=== PATIENT | male | born 1970 | race Caucasian/White ===

== ENCOUNTER 2018-01-28 01:51 | Emergency (ER) | payer SELFPAY ==
[2018-01-28] MEDS ORDERED: Sodium Chloride 0.9% 1,000 ML IV ONE (02:19)
[2018-01-28] MEDS ORDERED: Morphine 2 MG/ML Syringe IVPUSH ONE (02:20)
--- NOTE | 2018-01-28 02:24 | EDM.PDOC ---
ED HPI GENERAL MEDICAL PROBLEM - General Chief Complaint: ENT Problem Stated Complaint: ABCESSED TOOTH Time Seen by Provider: 01/28/18 01:55 - History of Present Illness INITIAL COMMENTS - FREE TEXT/NARRATIVE: HISTORY AND PHYSICAL: History of present illness: 47-year-old male presenting [facility] department with chief complaint of right jaw pain. Patient states that for the past few months he's had right jaw pain and knows that he has had a dental infection on and off. States that over the past 2 nights he is felt extremely feverish and has had some associated nausea without vomiting. Secondary above he came in for further evaluation. States he is not had a dental appointment yet. Does have some ear pain on the right side. States that the pain radiates from his right jaw into his right neck. Denies any chest pain, palpitations, shortness breath, syncopal episodes, focal neurologic deficits. On exam patient has significant swelling to the right lower jaw. Tooth #30 is chipped with poor dentition. There is surrounding erythema and significant swelling. Patient is tender to palpation along jaw but not mastoid. Submandibular and anterior cervical lymph nodes on the right side of her significantly enlarged and tender. CT macro facial showed extensive right facial edema without definitive walled off collections consistent with abscess. There is also bilateral neck adenopathy. Review of systems: As per history of present illness and below otherwise all systems reviewed and negative. Past medical history: As per history of present illness and as reviewed below otherwise noncontributory. Surgical history: As per history of present illness and as reviewed below otherwise noncontributory. Social history: No reported history of drug or alcohol abuse. Family history: As per history of present illness and as reviewed below otherwise noncontributory. Physical exam: HEENT: Atraumatic, normocephalic, pupils reactive, negative for conjunctival pallor or scleral icterus, mucous membranes moist, throat clear, neck supple, trachea midline. Lungs: Clear to auscultation, breath sounds equal bilaterally, chest nontender. Heart: S1S2, regular, negative for clicks, rubs, or JVD. Abdomen: Soft, nondistended, nontender. Negative for masses or hepatosplenomegaly. Negative for costovertebral tenderness. Pelvis: Stable nontender. Genitourinary: Deferred. Rectal: Deferred. Extremities: Atraumatic, negative for cords or calf pain. Neurovascular unremarkable. Neuro: Awake, alert, oriented. Cranial nerves II through XII unremarkable. Cerebellum unremarkable. Motor and sensory unremarkable throughout. Exam nonfocal. Diagnostics: CBC, CMP, CT maxillofacial Therapeutics: 1 L normal saline, 2 mg IV morphine, Rocephin IM, Augmentin 875mg PO BID x 10 days, Percocet 5-325 #12, dental balls Impression: Dental abscess Plan: Please see H&P. CBC and CMP are unremarkable. Patient was instructed to follow- up with a dentist [facility]. He was given a prescription of Augmentin as well as Percocet for pain and infection. He was instructed to return to emergency department if he any new or worsening symptoms. He is also instructed to follow- up with his primary care provider. Definitive disposition and diagnosis as appropriate pending reevaluation and review of above. left lower tooth/jaw Pain Score (Numeric/FACES): 10 right jaw Pain Score (Numeric/FACES): 10 - Related Data Allergies Allergy/AdvReac Type Severity Reaction Status Date / Time meperidine HCl [From Demerol] Allergy Redness Verified 08/22/14 14:32 Home Meds: Home Meds Dextroamphetamine/Amphetamine [Adderall] 30 mg PO BID 03/23/14 [History] Blood Pressure Medication 01/28/18 [History] ED ROS GENERAL - Review of Systems Review Of Systems: ROS reveals no pertinent complaints other than HPI. ED EXAM, GENERAL - Physical Exam Exam: See Below Course - Vital Signs Last Recorded V/S: Last Vital Signs Temp 97.3 F 01/28/18 04:17 Pulse 102 H 01/28/18 04:17 Resp 18 01/28/18 04:17 BP 169/116 H 01/28/18 04:17 Pulse Ox 98 01/28/18 04:17 - Orders/Labs/Meds Orders: Active Orders 24 hr Category Date Time Status Max Facial Sinus wo Cont [CT] Stat Exams 01/28/18 02:20 Taken Labs: Laboratory Tests 01/28/18 01/28/18 Range/Units 02:20 02:20 WBC 10.24 (4.0-11.0) K/uL RBC 5.05 (4.50-5.90) M/uL Hgb 15.0 (13.0-17.0) g/dL Hct 42.9 (38.0-50.0) % MCV 85.0 (80.0-98.0) fL MCH 29.7 (27.0-32.0) pg MCHC 35.0 (31.0-37.0) g/dL RDW Std Deviation 39.5 (28.0-62.0) fl RDW Coeff of Yunior 13 (11.0-15.0) % Plt Count 224 (150-400) K/uL MPV 9.30 (7.40-12.00) fL Neut % (Auto) 70.7 (48.0-80.0) % Lymph % (Auto) 19.8 (16.0-40.0) % [place] % (Auto) 7.9 (0.0-15.0) % Eos % (Auto) 1.3 (0.0-7.0) % Baso % (Auto) 0.3 (0.0-1.5) % Neut # (Auto) 7.2 H (1.4-5.7) K/uL Lymph # (Auto) 2.0 (0.6-2.4) K/uL [place] # (Auto) 0.8 (0.0-0.8) K/uL Eos # (Auto) 0.1 (0.0-0.7) K/uL Baso # (Auto) 0.0 (0.0-0.1) K/uL Nucleated RBC % 0.0 /100WBC Nucleated RBCs # 0 K/uL Sodium 139 (136-148) mmol/L Potassium 3.1 L (3.5-5.1) mmol/L Chloride 102 (98-107) mmol/L Carbon Dioxide 27.4 (21.0-32.0) mmol/L BUN 14 (7.0-18.0) mg/dL Creatinine 1.5 H (0.8-1.3) mg/dL Est Cr Clr Drug Dosing TNP Estimated GFR (MDRD) 50.4 ml/min Glucose 106 (74-106) mg/dL Calcium 8.7 (8.5-10.1) mg/dL Total Bilirubin 0.4 (0.2-1.0) mg/dL AST 34 (15-37) IU/L ALT 39 (14-63) IU/L Alkaline Phosphatase 90 (46-116) U/L Total Protein 7.4 (6.4-8.2) g/dL Albumin 3.8 (3.4-5.0) g/dL Globulin 3.6 H (2.0-3.5) g/dL Albumin/Globulin Ratio 1.1 L (1.3-2.8) Meds: Medications Discontinued Medications Generic Name Dose Route Start Last Admin Trade Name Freq PRN Reason Stop Dose Admin Benzocaine 2 each 01/28/18 03:59 01/28/18 04:18 Hurricaine One 20% MUCMEM 01/28/18 04:00 2 each ONETIME ONE Administration Ceftriaxone Sodium 250 mg 01/28/18 04:19 Rocephin IM 01/28/18 04:20 ONETIME ONE Hydromorphone HCl 1 mg 01/28/18 03:28 01/28/18 03:33 Dilaudid IVPUSH 01/28/18 03:29 1 mg ONETIME ONE Administration Sodium Chloride 1,000 mls @ 999 mls/hr 01/28/18 02:19 01/28/18 02:30 Normal Saline IV 01/28/18 03:19 999 mls/hr STAT ONE Administration Lidocaine HCl 15 ml 01/28/18 03:59 01/28/18 04:18 Xylocaine 2% Viscous PO 01/28/18 04:00 15 ml ONETIME ONE Administration Morphine Sulfate 2 mg 01/28/18 02:20 01/28/18 02:34 Morphine IVPUSH 01/28/18 02:21 2 mg ONETIME ONE Administration Departure - Departure Time of Disposition: 04:25 Disposition: Home, Self-Care 01 Condition: Good Clinical Impression: Dental abscess - Discharge Information Referrals: Kamryn Ren DO [Primary Care Provider] - Forms: ED Department Discharge Additional Instructions: My general discharge The following information is given to patients seen in the emergency department who are being discharged to home. This information is to outline your options for follow-up care. We provide all patients seen in our emergency department with a follow-up referral. The need for follow-up, as well as the timing and circumstances, are variable depending upon the specifics of your emergency department visit. If you don't have a primary care physician on staff, we will provide you with a referral. We always advise you to contact your personal physician following an emergency department visit to inform them of the circumstance of the visit and for follow-up with them and/or the need for any referrals to a consulting specialist. The emergency department will also refer you to a specialist when appropriate. This referral assures that you have the opportunity for follow-up care with a specialist. All of these measure are taken in an effort to provide you with optimal care, which includes your follow-up. Under all circumstances we always encourage you to contact your private physician who remains a resource for coordinating your care. When calling for follow-up care, please make the office aware that this follow-up is from your recent emergency room visit. If for any reason you are refused follow-up, please contact the [facility] Emergency Department at and asked to speak to the emergency department charge nurse. [address] [address] Take medications as prescribed. Follow-up with a dentist as soon as possible. Return to emergency department if any new or worsening symptoms. - My Orders Last 24 Hours: My Active Orders 01/28/18 02:20 Max Facial Sinus wo Cont [CT] Stat - Assessment/Plan Last 24 Hours: My Active Orders 01/28/18 02:20 Max Facial Sinus wo Cont [CT] Stat
[2018-01-28 03:01] LABS: CHLORIDE,CL 102 mmol/L (98-107); SODIUM,NA 139 mmol/L (136-148)
[2018-01-28] MEDS ORDERED: HYDROmorphone 1 MG/ML Syringe IVPUSH ONE (03:28)
[2018-01-28] MEDS ORDERED: Benzocaine 20% Topical Spray UD MUCMEM ONE (03:59)
[2018-01-28] MEDS ORDERED: Lidocaine 2% Viscous Solution 15 ML Cup PO ONE (03:59)
[2018-01-28 04:18] VITALS: BP 169/116
[2018-01-28] MEDS ORDERED: cefTRIAXone 250 MG Vial IM ONE (04:19)
[2018-01-28] MEDS ORDERED: cefTRIAXone 250 MG in Water For Injection, Sterile 7 ML IV STA (04:32)
[2018-01-28] MEDS ORDERED: Water For Injection, Sterile 20 ML ONE (04:37)
--- NOTE | 2018-01-29 10:40 | CT ---
EXAM DATE: 01/28/18 PATIENT'S AGE: 47 Patient: DAVID CANO Facility: [place], [place] : 1970 Study: CT Facial Right [id number]/5/2018 3:24:54 AM Ordering Physician: Mario Delgado Final Report: INDICATION: tooth abscess, lower right side INDICATION: Lower right-sided tooth abscess TECHNIQUE: CT maxillofacial without contrast. COMPARISON: None FINDINGS: Facial bones: No fractures or bone lesions. Specifically the nasal bones, temporomandibular joints, maxilla and mandible appear intact. Orbits and globes: Unremarkable. Sinuses: No acute or significant findings. Soft tissues: Right-sided facial edema. Correlate with cellulitis clinically. Bilateral neck adenopathy. IMPRESSION: Extensive right facial edema with no definite walled-off collections noted consistent with abscess. Correlate with cellulitis clinically. Bilateral neck adenopathy. Dictated by Tashi Yan MD @ 01/28/2018 4:15:23 AM Prelim Report By Dr. Tashi Yan @ 01/28/2018 4:15:25 AM Please note that all CT scans at this facility use dose modulation, iterative reconstruction, and/or weight-based dosing when appropriate to reduce radiation dose to as low as reasonably achievable. Dictated by: Tashi Yan MD @ 01/28/2018 13:48:00 Signed by: Tashi Yan MD @ 01/28/2018 1:48:00 PM (Electronic Signature) (Electronic Signature) [facility]
== END 2018-01-28 04:50 | disposition home or self-care (01) ==
LOC: MW.ED 01:51
DX: K04.7 Periapical abscess without sinus (principal); Z88.6 Allergy status to analgesic agent
CPT/HCPCS: 70486; 80053; 85025; 96361; 96374; 96375; 99284; A9270; J0696; J1170; J2270; J7040

== ENCOUNTER 2018-04-07 07:19 | Emergency (ER) | payer SELFPAY ==
[2018-04-07] MEDS ORDERED: Ketorolac 60 MG/2 ML SDV IM ONE (07:34)
--- NOTE | 2018-04-07 07:34 | EDM.PDOC ---
ED HPI GENERAL MEDICAL PROBLEM - General Stated Complaint: GOUT FLARE UP IN LEFT FOOT Time Seen by Provider: 04/07/18 07:27 Source of Information: Reports: Patient History Limitations: Reports: No Limitations - History of Present Illness INITIAL COMMENTS - FREE TEXT/NARRATIVE: History of present illness: []Patient has a history of gout and began having a flareup 2 days ago. He ran out of his refills for indomethacin. was unable to see him to give him a refill on his meds. Patient complains of left ankle pain for the gout is flaring, he denies any trauma, fevers, chills and states it feels like a typical gout flareup. Review of systems: As per history of present illness and below otherwise all systems reviewed and negative. Past medical history: As per history of present illness and as reviewed below otherwise noncontributory. Surgical history: As per history of present illness and as reviewed below otherwise noncontributory. Social history: No reported history of drug or alcohol abuse. Family history: As per history of present illness and as reviewed below otherwise noncontributory. Physical exam: General: Well developed, well nourished in NAD HEENT: Atraumatic, normocephalic, pupils reactive, negative for conjunctival pallor or scleral icterus, mucous membranes moist, throat clear, neck supple, nontender, trachea midline. Lungs: Clear to auscultation, breath sounds equal bilaterally, chest nontender. Heart: S1S2, regular, negative for clicks, rubs, or JVD. Abdomen: Soft, nondistended, nontender. Negative for masses or hepatosplenomegaly. Negative for costovertebral tenderness. Pelvis: Stable nontender. Genitourinary: Deferred. Rectal: Deferred. Extremities: Left ankle edematous with mild erythema and tenderness to palpation. Distal pulses are intact sensation is intact moves toes without difficulty, negative for cords or calf pain. Neurovascular unremarkable. Neuro: Awake, alert, oriented. Cranial nerves II through XII unremarkable. Cerebellum unremarkable. Motor and sensory unremarkable throughout. Exam nonfocal. Skin:warm and dry Diagnostics: CBC and uric acid Therapeutics: Toradol ED Course: Unremarkable Impression: Gout flareup Prescriptions: Indomethacin Plan: Ice, elevate, indomethacin as directed follow-up with her primary care Definitive disposition and diagnosis as appropriate pending reevaluation and review of above. Left Ankle Pain Score (Numeric/FACES): 10 - Related Data Allergies Allergy/AdvReac Type Severity Reaction Status Date / Time meperidine HCl [From Demerol] Allergy Redness Verified 04/07/18 07:25 Home Meds: Home Meds Blood Pressure Medication 01/28/18 [History] Indomethacin 50 mg PO BID PRN #16 capsule 04/07/18 [Rx] Past Medical History HEENT History: Reports: None Cardiovascular History: Reports: Hypertension Respiratory History: Reports: None Gastrointestinal History: Reports: None Genitourinary History: Reports: None Musculoskeletal History: Reports: Gout Neurological History: Reports: None Psychiatric History: Reports: ADHD Endocrine/Metabolic History: Reports: None Hematologic History: Reports: None - Infectious Disease History Infectious Disease History: Reports: Chicken Pox, Measles, Mumps - Past Surgical History Male Surgical History: Reports: None Social & Family History - Family History Family Medical History: Noncontributory ED ROS GENERAL - Review of Systems Review Of Systems: ROS reveals no pertinent complaints other than HPI. ED EXAM, GENERAL - Physical Exam Exam: See Below (History of present illness) Course - Vital Signs Last Recorded V/S: Last Vital Signs Temp 98.1 F 04/07/18 07:27 Pulse 108 H 04/07/18 07:27 Resp 17 04/07/18 07:27 BP 137/97 H 04/07/18 07:27 Pulse Ox 98 04/07/18 07:27 - Orders/Labs/Meds Orders: Active Orders 24 hr Category Date Time Status CULTURE BLOOD [BC] Stat Lab 04/07/18 08:20 Received CULTURE BLOOD [BC] Stat Lab 04/07/18 08:30 Received Blood Culture x2 Reflex Set [OM.PC] Stat Oth 04/07/18 08:15 Ordered Labs: Laboratory Tests 04/07/18 04/07/18 Range/Units 08:20 08:20 WBC 8.78 (4.0-11.0) K/uL RBC 4.97 (4.50-5.90) M/uL Hgb 14.7 (13.0-17.0) g/dL Hct 41.9 (38.0-50.0) % MCV 84.3 (80.0-98.0) fL MCH 29.6 (27.0-32.0) pg MCHC 35.1 (31.0-37.0) g/dL RDW Std Deviation 39.7 (28.0-62.0) fl RDW Coeff of Yunior 13 (11.0-15.0) % Plt Count 231 (150-400) K/uL MPV 9.20 (7.40-12.00) fL Neut % (Auto) 68.4 (48.0-80.0) % Lymph % (Auto) 19.4 (16.0-40.0) % [place] % (Auto) 9.6 (0.0-15.0) % Eos % (Auto) 2.3 (0.0-7.0) % Baso % (Auto) 0.3 (0.0-1.5) % Neut # (Auto) 6.0 H (1.4-5.7) K/uL Lymph # (Auto) 1.7 (0.6-2.4) K/uL [place] # (Auto) 0.8 (0.0-0.8) K/uL Eos # (Auto) 0.2 (0.0-0.7) K/uL Baso # (Auto) 0.0 (0.0-0.1) K/uL Nucleated RBC % 0.0 /100WBC Nucleated RBCs # 0 K/uL Uric Acid 8.0 H (2.6-7.2) mg/dL Meds: Medications Discontinued Medications Generic Name Dose Route Start Last Admin Trade Name Freq PRN Reason Stop Dose Admin Ketorolac Tromethamine 60 mg 04/07/18 07:34 04/07/18 07:40 Toradol IM 04/07/18 07:35 60 mg ONETIME ONE Administration Departure - Departure Time of Disposition: :06 Disposition: Home, Self-Care 01 Condition: Good Clinical Impression: Gout attack - Discharge Information *PRESCRIPTION DRUG MONITORING PROGRAM REVIEWED*: No *COPY OF PRESCRIPTION DRUG MONITORING REPORT IN PATIENT CONCEPCION: No Prescriptions: Indomethacin 50 mg PO BID PRN #16 capsule PRN Reason: Pain Referrals: Kamryn Ren DO [Primary Care Provider] - Additional Instructions: The following information is given to patients seen in the emergency department who are being discharged to home. This information is to outline your options for follow-up care. We provide all patients seen in our emergency department with a follow-up referral. The need for follow-up, as well as the timing and circumstances, are variable depending upon the specifics of your emergency department visit. If you don't have a primary care physician on staff, we will provide you with a referral. We always advise you to contact your personal physician following an emergency department visit to inform them of the circumstance of the visit and for follow-up with them and/or the need for any referrals to a consulting specialist. The emergency department will also refer you to a specialist when appropriate. This referral assures that you have the opportunity for follow-up care with a specialist. All of these measure are taken in an effort to provide you with optimal care, which includes your follow-up. Under all circumstances we always encourage you to contact your private physician who remains a resource for coordinating your care. When calling for follow-up care, please make the office aware that this follow-up is from your recent emergency room visit. If for any reason you are refused follow-up, please contact the [facility] Emergency Department at and asked to speak to the emergency department charge nurse. Indomethacin as directed follow-up with primary care [facility] [address] [place] [address] - My Orders Last 24 Hours: My Active Orders 04/07/18 08:15 Blood Culture x2 Reflex Set [OM.PC] Stat 04/07/18 08:20 CULTURE BLOOD [BC] Stat 04/07/18 08:30 CULTURE BLOOD [BC] Stat - Assessment/Plan Last 24 Hours: My Active Orders 04/07/18 08:15 Blood Culture x2 Reflex Set [OM.PC] Stat 04/07/18 08:20 CULTURE BLOOD [BC] Stat 04/07/18 08:30 CULTURE BLOOD [BC] Stat
[2018-04-07 09:42] VITALS: BP 160/104
== END 2018-04-07 09:20 | disposition home or self-care (01) ==
LOC: MW.ED 07:19
DX: M10.9 Gout, unspecified (principal); I10 Essential (primary) hypertension; Z88.8 Allergy status to other drugs, medicaments and biological substances
CPT/HCPCS: 36415; 84550; 85025; 87040; 96372; 99283; J1885

== ENCOUNTER 2019-02-08 19:49 | Emergency (ER) | payer SELFPAY ==
[2019-02-08 20:19] VITALS: BP 137/98
--- NOTE | 2019-02-08 20:32 | EDM.PDOC ---
ED HPI GENERAL MEDICAL PROBLEM - General Chief Complaint: Upper Extremity Injury/Pain Stated Complaint: PT HAS GOUT Time Seen by Provider: 02/08/19 20:19 Source of Information: Reports: Patient History Limitations: Reports: No Limitations - History of Present Illness INITIAL COMMENTS - FREE TEXT/NARRATIVE: Presents reporting gout. The patient states that he has had a number of gout attacks. He currently has pain tenderness redness and swelling of his right hand. He states that he has had an attack in this hand before and his hand swelled up even worse. On that occasion he was tested and indeed he did have gout. He also has some gout in his right ankle and in his left knee. He states that he has an appointment on Thursday with in primary care to discuss preventative treatment. He denies drinking beer, eating shellfish, organ meats or other high purine foods. He usually keeps indomethacin with him to head off attacks but he was out of medication. right hand, right foot, left knee Pain Score (Numeric/FACES): 10 - Related Data Allergies Allergy/AdvReac Type Severity Reaction Status Date / Time meperidine HCl [From Demerol] Allergy Redness Verified 02/08/19 20:01 Home Meds: Home Meds Blood Pressure Medication 01/28/18 [History] Indomethacin 50 mg PO BID PRN #16 capsule 04/07/18 [Rx] Indomethacin [Indocin] 50 mg PO TID #20 cap 02/08/19 [Rx] predniSONE [Prednisone] 2 tab PO DAILY #10 tablet 02/08/19 [Rx] Past Medical History HEENT History: Reports: None Cardiovascular History: Reports: Hypertension Respiratory History: Reports: None Gastrointestinal History: Reports: None Genitourinary History: Reports: None Musculoskeletal History: Reports: Gout Neurological History: Reports: None Psychiatric History: Reports: ADHD Endocrine/Metabolic History: Reports: None Hematologic History: Reports: None Dermatologic History: Reports: None - Infectious Disease History Infectious Disease History: Reports: Chicken Pox - Past Surgical History Male Surgical History: Reports: None Social & Family History - Family History Family Medical History: Noncontributory - Tobacco Use Smoking Status *Q: Current Every Day Smoker Years of Tobacco use: 20 Packs/Tins Daily: 1 - Recreational Drug Use Recreational Drug Use: Yes Recreational Drug Type: Reports: Marijuana/Hashish Review of Systems - Review of Systems Review Of Systems: ROS reveals no pertinent complaints other than HPI. ED EXAM, GENERAL - Physical Exam Exam: See Below Exam Limited By: No Limitations General Appearance: Alert, Mild Distress (Due to right hand tenderness) Ears: Normal External Exam, Normal TMs Nose: Normal Inspection Throat/Mouth: Normal Inspection Head: Atraumatic Neck: Normal Inspection Respiratory/Chest: No Respiratory Distress, Lungs Clear Cardiovascular: Normal Peripheral Pulses, Regular Rate, Rhythm, No Murmur Peripheral Pulses: 3+: Radial (L), Radial (R), Popliteal (L), Popliteal (R), Posterior Tibial (L), Posterior Tibial (R) Extremities: Other (Right dorsal hand swollen, calorous, tender, pink. Right lateral ankle, tender, mildly swollen, no erythema or calor. Left knee mild erythema no swelling, mild tenderness distally, full range of motion without hesitation or limitation of the knee.) Course - Vital Signs Last Recorded V/S: Last Vital Signs Temp 36.8 C 02/08/19 20:03 Pulse 110 H 02/08/19 20:03 Resp 18 02/08/19 20:03 BP 137/98 H 02/08/19 20:03 Pulse Ox 95 02/08/19 20:03 Departure - Departure Time of Disposition: 20:39 Disposition: Home, Self-Care 01 Condition: Good Clinical Impression: Gout Qualifiers: Gout site: multiple sites Gout etiology: unspecified cause Chronicity: chronic Qualified Code(s): M1A.09X0 - Idiopathic chronic gout, multiple sites, without tophus (tophi) - Discharge Information Referrals: PCP,None [Primary Care Provider] - Kamryn Ren DO [Physician] - Additional Instructions: The following information is given to patients seen in the emergency department who are being discharged to home. This information is to outline your options for follow-up care. We provide all patients seen in our emergency department with a follow-up referral. The need for follow-up, as well as the timing and circumstances, are variable depending upon the specifics of your emergency department visit. If you don't have a primary care physician on staff, we will provide you with a referral. We always advise you to contact your personal physician following an emergency department visit to inform them of the circumstance of the visit and for follow-up with them and/or the need for any referrals to a consulting specialist. The emergency department will also refer you to a specialist when appropriate. This referral assures that you have the opportunity for follow-up care with a specialist. All of these measure are taken in an effort to provide you with optimal care, which includes your follow-up. Under all circumstances we always encourage you to contact your private physician who remains a resource for coordinating your care. When calling for follow-up care, please make the office aware that this follow-up is from your recent emergency room visit. If for any reason you are refused follow-up, please contact the [facility] Emergency Department at and asked to speak to the emergency department charge nurse. 1. Prednisone: Take 3 tabs tonight and then 2 tabs daily for the next 4 days 2. Indomethacin 3 times a day as needed for gout attack 3. Follow-up with Dr. Ren on Thursday as previously scheduled 4. Drink plenty of fluids 5. Return if symptoms worsen or do not improve as expected
[2019-02-08] MEDS ORDERED: Ketorolac 60 MG/2 ML SDV IM ONE (20:34)
== END 2019-02-08 21:02 | disposition home or self-care (01) ==
LOC: MW.ED 19:49
DX: M1A.09X0 Idiopathic chronic gout, multiple sites, without tophus (tophi) (principal); I10 Essential (primary) hypertension; F17.210 Nicotine dependence, cigarettes, uncomplicated; Z88.5 Allergy status to narcotic agent; Z79.899 Other long term (current) drug therapy
CPT/HCPCS: 96372; 99283; J1885

== ENCOUNTER 2019-08-02 16:48 | Emergency (ER) | payer SELFPAY ==
--- NOTE | 2019-08-02 16:55 | EDM.PDOC ---
ED HPI GENERAL MEDICAL PROBLEM - General Stated Complaint: GOUT HANDS & FEET Time Seen by Provider: 08/02/19 16:49 Source of Information: Reports: Patient History Limitations: Reports: No Limitations - History of Present Illness INITIAL COMMENTS - FREE TEXT/NARRATIVE: HISTORY AND PHYSICAL: History of present illness: Patient is a 48-year-old male who presents to the emergency room with complaints of bilateral hands and feet discomfort. Patient has a longstanding history of gout and does typically take allopurinol daily to help prevent these attacks. He states he does have gout flares every few months or so. Currently out of his indomethacin which he typically will take when he feels he is having a flare. Patient denies any fever, chills, headache, change in vision, syncope or near syncope. Denies any chest pain, back pain, shortness of breath or cough. Denies any GI or symptoms. Patient has been eating and drinking appropriately. Review of systems: As per history of present illness and below otherwise all systems reviewed and negative. Past medical history: As per history of present illness and as reviewed below otherwise noncontributory. Surgical history: As per history of present illness and as reviewed below otherwise noncontributory. Social history: See social history for further information Family history: As per history of present illness and as reviewed below otherwise noncontributory. Physical exam: General: Well-developed and well-nourished 48-year-old male. Alert and oriented. Nontoxic-appearing and in no acute distress. HEENT: Atraumatic, normocephalic, pupils equal and reactive bilaterally, negative for conjunctival pallor or scleral icterus, mucous membranes moist, TMs normal bilaterally, throat clear, neck supple, nontender, trachea midline. No drooling or trismus noted. No meningeal signs. No hot potato voice noted. Lungs: Clear to auscultation, breath sounds equal bilaterally, chest nontender. Heart: S1S2, regular rate and rhythm without overt murmur Abdomen: Soft, nondistended, nontender. Skin: Intact, warm, dry. No concerns of cellulitis or infection. No lesions or rashes noted. Extremities: Atraumatic, moves all extremities per self without difficulty or deficits, negative for cords or calf pain. Neurovascular unremarkable. Neuro: Awake, alert, oriented. Cranial nerves II through XII unremarkable. Cerebellum unremarkable. Motor and sensory unremarkable throughout. Exam nonfocal. Notes: Patient reports that he received a shot of Toradol IM on his last ER visit and states that that helped alleviate his discomfort, requesting 1 today. Denies any injury, trauma or falls. Pain is in the knuckles and joints of his hands and bilateral feet which he states is typical with his gout flares. We did discuss the importance of following up with his primary care provider. Supportive care measures were reviewed and discussed. Voices understanding and is agreeable to plan of care. Denies any further questions or concerns at this time. Diagnostics: Declines Therapeutics: Toradol IM Prescription: Indomethacin Colchicine Prednisone Impression: Gout Attack Plan: 1. Take the medication as directed. 2. Follow up with your primary care provider as we discussed. 3. Return to the ED as we discussed. Definitive disposition and diagnosis as appropriate pending reevaluation and review of above. both hands;feet Pain Score (Numeric/FACES): 9 - Related Data Allergies Allergy/AdvReac Type Severity Reaction Status Date / Time meperidine HCl [From Demerol] Allergy Redness Verified 08/02/19 17:01 Home Meds: Home Meds Allopurinol [Zyloprim] 100 mg PO DAILY 08/02/19 [History] Past Medical History HEENT History: Reports: None Cardiovascular History: Reports: Hypertension Respiratory History: Reports: None Gastrointestinal History: Reports: None Genitourinary History: Reports: None Musculoskeletal History: Reports: Gout Neurological History: Reports: None Psychiatric History: Reports: ADHD Endocrine/Metabolic History: Reports: None Hematologic History: Reports: None Dermatologic History: Reports: None - Infectious Disease History Infectious Disease History: Reports: Chicken Pox - Past Surgical History Male Surgical History: Reports: None Social & Family History - Family History Family Medical History: Noncontributory ED ROS GENERAL - Review of Systems Review Of Systems: Comprehensive ROS is negative, except as noted in HPI. ED EXAM, GENERAL - Physical Exam Exam: See Below (See dictation) Course - Vital Signs Last Recorded V/S: Last Vital Signs Temp 97 F 08/02/19 16:50 Pulse 129 H 08/02/19 16:50 Resp 18 08/02/19 16:50 BP 143/104 H 08/02/19 16:50 Pulse Ox 95 08/02/19 16:50 - Orders/Labs/Meds Meds: Medications Discontinued Medications Generic Name Dose Route Start Last Admin Trade Name Eunice PRN Reason Stop Dose Admin Ketorolac Tromethamine 60 mg 08/02/19 17:01 Toradol IM 08/02/19 17:02 ONETIME ONE Departure - Departure Time of Disposition: 17:04 Disposition: Home, Self-Care 01 Clinical Impression: Gout attack Qualifiers: Gout site: unspecified site Gout etiology: unspecified cause Qualified Code(s) : M10.9 - Gout, unspecified - Discharge Information Instructions: Gout, [id number] Additional Instructions: The following information is given to patients seen in the emergency department who are being discharged to home. This information is to outline your options for follow-up care. We provide all patients seen in our emergency department with a follow-up referral. The need for follow-up, as well as the timing and circumstances, are variable depending upon the specifics of your emergency department visit. If you don't have a primary care physician on staff, we will provide you with a referral. We always advise you to contact your personal physician following an emergency department visit to inform them of the circumstance of the visit and for follow-up with them and/or the need for any referrals to a consulting specialist. The emergency department will also refer you to a specialist when appropriate. This referral assures that you have the opportunity for follow-up care with a specialist. All of these measure are taken in an effort to provide you with optimal care, which includes your follow-up. Under all circumstances we always encourage you to contact your private physician who remains a resource for coordinating your care. When calling for follow-up care, please make the office aware that this follow-up is from your recent emergency room visit. If for any reason you are refused follow-up, please contact the [facility] Emergency Department at and asked to speak to the emergency department charge nurse. [facility] [address] [place] [id number] [address] 1. Take the medication as directed. 2. Follow up with your primary care provider as we discussed. 3. Return to the ED as we discussed. Sepsis Event Note - Focused Exam Vital Signs: Vital Signs Temp Pulse Resp BP Pulse Ox 08/02/19 16:50 97 F 129 H 18 143/104 H 95 Date Exam was Performed: 08/02/19 Time Exam was Performed: 17:05
[2019-08-02] MEDS ORDERED: Ketorolac 60 MG/2 ML SDV IM ONE (17:01)
[2019-08-02 18:08] VITALS: BP 155/101; PULSE 125
== END 2019-08-02 18:09 | disposition home or self-care (01) ==
LOC: MW.ED 16:48
DX: M10.9 Gout, unspecified (principal); I10 Essential (primary) hypertension; Z88.6 Allergy status to analgesic agent; Z79.899 Other long term (current) drug therapy
CPT/HCPCS: 96372; 99283; J1885; 99282

== ENCOUNTER 2019-09-02 12:35 | Emergency (ER) | payer SELFPAY ==
[2019-09-02] MEDS ORDERED: Labetalol 100 MG/20 ML MDV IVPUSH ONE (12:58)
[2019-09-02] MEDS ORDERED: predniSONE 20 MG Tab PO SCH (13:00)
[2019-09-02] MEDS ORDERED: Pantoprazole 40 MG Tab.CR PO SCH (13:00)
--- NOTE | 2019-09-02 13:08 | EDM.PDOC ---
ED HPI GENERAL MEDICAL PROBLEM - General Chief Complaint: General Stated Complaint: GOUT Time Seen by Provider: 09/02/19 12:48 Source of Information: Reports: Patient History Limitations: Reports: No Limitations - History of Present Illness INITIAL COMMENTS - FREE TEXT/NARRATIVE: This 49 year old male is admitted to the ED with a chief complaint of acute flare up of his gout that started 5 days ago. He states that he took Indomethacin but it is not working. He also takes Allopurinol but nothing seems to be helping. He has a history of hypertension but did not take his medications this morning. He denies any chest pain, SOB or other symptoms. Onset: Gradual (5 days ago) Duration: Getting Worse Location: Reports: Lower Extremity, Right (right great toe and heel of foot) Severity: Moderate Worsens with: Reports: Other (weight bearing) right foot Pain Score (Numeric/FACES): 10 - Related Data Allergies Allergy/AdvReac Type Severity Reaction Status Date / Time meperidine HCl [From Demerol] Allergy Redness Verified 09/02/19 12:45 Home Meds: Home Meds Allopurinol [Zyloprim] 100 mg PO DAILY 08/02/19 [History] Indomethacin 25 mg PO TID PRN 10 Days #30 capsule 09/02/19 [Rx] Indomethacin 50 mg PO TID 09/02/19 [History] Pantoprazole Sodium [Protonix] 40 mg PO DAILY 10 Days #10 tablet. 09/02/19 [Rx ] predniSONE [Prednisone] 30 mg PO DAILY 5 Days #15 tablet 09/02/19 [Rx] Past Medical History HEENT History: Reports: None Cardiovascular History: Reports: Hypertension Respiratory History: Reports: None Gastrointestinal History: Reports: None Genitourinary History: Reports: None Musculoskeletal History: Reports: Gout Neurological History: Reports: None Psychiatric History: Reports: ADHD Endocrine/Metabolic History: Reports: None Hematologic History: Reports: None Immunologic History: Reports: None Oncologic (Cancer) History: Reports: None Dermatologic History: Reports: None - Infectious Disease History Infectious Disease History: Reports: None - Past Surgical History Head Surgeries/Procedures: Reports: None HEENT Surgical History: Reports: None Cardiovascular Surgical History: Reports: None Respiratory Surgical History: Reports: None GI Surgical History: Reports: None Male Surgical History: Reports: None Musculoskeletal Surgical History: Reports: Amputation Oncologic Surgical History: Reports: None Social & Family History - Family History Family Medical History: Noncontributory - Tobacco Use Smoking Status *Q: Current Every Day Smoker Years of Tobacco use: 3 Packs/Tins Daily: 0.2 - Caffeine Use Caffeine Use: Reports: None - Alcohol Use Days Per Week of Alcohol Use: 7 Number of Drinks Per Day: 1 Total Drinks Per Week: 7 - Recreational Drug Use Recreational Drug Use: No ED ROS GENERAL - Review of Systems Review Of Systems: See Below Constitutional: Reports: No Symptoms HEENT: Reports: No Symptoms Respiratory: Reports: No Symptoms Cardiovascular: Reports: No Symptoms Endocrine: Reports: No Symptoms GI/Abdominal: Reports: No Symptoms : Reports: No Symptoms Musculoskeletal: Reports: Joint Pain (right great toe pain with swelling as well as pain in right heel into the medial malleolus) Skin: Reports: Erythema (over right foot especially the great toe) Neurological: Reports: No Symptoms ED EXAM, GENERAL - Physical Exam Exam: See Below Exam Limited By: No Limitations General Appearance: Alert, WD/WN, Mild Distress (He is limping favoring his right foot) Eye Exam: Bilateral Eye: EOMI, PERRL Ears: Normal External Exam, Normal Canal, Hearing Grossly Normal, Normal TMs Ear Exam: Bilateral Ear: Auricle Normal, Canal Normal, TM normal Nose: Normal Inspection, Normal Mucosa, No Blood Throat/Mouth: Normal Inspection, Normal Lips, Normal Teeth, Normal Gums, Normal Oropharynx, Normal Voice, No Airway Compromise Head: Atraumatic, Normocephalic Neck: Normal Inspection, Supple, Non-Tender, Full Range of Motion Respiratory/Chest: No Respiratory Distress, Lungs Clear, Normal Breath Sounds, No Accessory Muscle Use, Chest Non-Tender Cardiovascular: Normal Peripheral Pulses, No Murmur, No Rub, Tachycardia (rate of 104.) Peripheral Pulses: 3+: Femoral (L), Femoral (R), Dorsalis Pedis (L), Dorsalis Pedis (R) GI/Abdominal: Normal Bowel Sounds, Soft, Non-Tender, No Organomegaly, No Distention, No Abnormal Bruit, No Mass (Male) Exam: Deferred Rectal (Males) Exam: Deferred Back Exam: Normal Inspection, Full Range of Motion, NT Extremities: Joint Swelling (right great toe and most of his plantar aspects of the right foot extending into the malleolus. Very painful to palpation expecially over the right great toe and the right medial malleolus), Increased Warmth (over right foot consistent with acute gout flare up), Redness (right foot) Neurological: Alert, Oriented, CN II-XII Intact, Normal Cognition, Normal Gait, Normal Reflexes, No Motor/Sensory Deficits Skin Exam: Warm, Dry, Intact, No Rash, Erythema (right foot as noted above) Lymphatic: No Adenopathy Course - Vital Signs Text/Narrative:: The patient did well while in the ED. His uric acid was 6.6. His blood pressure came down nicely with his home medications. I discussed with him that because I will put him on Prednisone 30 mg for 5 days, I will also put him on Protonix 40mg daily to protect his stomach from the use of this short burst of steroids. The patient will be discharged. He agrees with the discharge plan. Last Recorded V/S: Last Vital Signs Temp 97.6 F 09/02/19 13:18 Pulse 96 09/02/19 13:18 Resp 16 09/02/19 13:18 BP 162/100 H 09/02/19 13:18 Pulse Ox 100 09/02/19 13:18 - Orders/Labs/Meds Orders: Active Orders 24 hr Category Date Time Status Pantoprazole [ProTONIX] Med 09/02/19 13:00 Active 40 mg PO STAT predniSONE Med 09/02/19 13:00 Active 40 mg PO STAT Medication Orders Pantoprazole Sodium (Protonix) 40 mg PO STAT OCTAVIO Last Admin: 09/02/19 13:30 Dose: 40 mg Prednisone (Prednisone) 40 mg PO STAT OCTAVIO Last Admin: 09/02/19 13:30 Dose: 40 mg Labs: Laboratory Tests 09/02/19 09/02/19 Range/Units 13:32 13:32 WBC 6.00 (4.0-11.0) K/uL RBC 4.56 (4.50-5.90) M/uL Hgb 13.5 (13.0-17.0) g/dL Hct 39.8 (38.0-50.0) % MCV 87.3 (80.0-98.0) fL MCH 29.6 (27.0-32.0) pg MCHC 33.9 (31.0-37.0) g/dL RDW Std Deviation 43.0 (28.0-62.0) fl RDW Coeff of Yunior 14 (11.0-15.0) % Plt Count 243 (150-400) K/uL MPV 9.40 (7.40-12.00) fL Neut % (Auto) 66.2 (48.0-80.0) % Lymph % (Auto) 23.8 (16.0-40.0) % [place] % (Auto) 8.2 (0.0-15.0) % Eos % (Auto) 1.5 (0.0-7.0) % Baso % (Auto) 0.3 (0.0-1.5) % Neut # (Auto) 4.0 (1.4-5.7) K/uL Lymph # (Auto) 1.4 (0.6-2.4) K/uL [place] # (Auto) 0.5 (0.0-0.8) K/uL Eos # (Auto) 0.1 (0.0-0.7) K/uL Baso # (Auto) 0.0 (0.0-0.1) K/uL Nucleated RBC % 0.0 /100WBC Nucleated RBCs # 0 K/uL Sodium 140 (136-148) mmol/L Potassium 4.8 (3.5-5.1) mmol/L Chloride 104 (98-107) mmol/L Carbon Dioxide 29.1 (21.0-32.0) mmol/L BUN 11 (7.0-18.0) mg/dL Creatinine 1.1 (0.8-1.3) mg/dL Est Cr Clr Drug Dosing 79.45 mL/min Estimated GFR (MDRD) > 60.0 ml/min Glucose 117 H (74-106) mg/dL Uric Acid 6.6 (2.6-7.2) mg/dL Calcium 9.4 (8.5-10.1) mg/dL Total Bilirubin 0.4 (0.2-1.0) mg/dL AST 25 (15-37) IU/L ALT 34 (14-63) IU/L Alkaline Phosphatase 99 (46-116) U/L Total Protein 7.3 (6.4-8.2) g/dL Albumin 3.4 (3.4-5.0) g/dL Globulin 3.9 (2.6-4.0) g/dL Albumin/Globulin Ratio 0.9 (0.9-1.6) Meds: Medications Generic Name Dose Route Start Last Admin Trade Name Freq PRN Reason Stop Dose Admin Pantoprazole Sodium 40 mg 09/02/19 13:00 09/02/19 13:30 Protonix PO 40 mg STAT OCTAVIO Administration Prednisone 40 mg 09/02/19 13:00 09/02/19 13:30 Prednisone PO 40 mg STAT OCTAVIO Administration Discontinued Medications Generic Name Dose Route Start Last Admin Trade Name Freq PRN Reason Stop Dose Admin Labetalol HCl 20 mg 09/02/19 12:58 09/02/19 13:18 Normodyne IVPUSH 09/02/19 12:59 Not Given ONETIME ONE Protocol Departure - Departure Time of Disposition: 14:42 Disposition: Home, Self-Care 01 Condition: Good Clinical Impression: Acute gout involving toe of right foot Qualifiers: Gout etiology: idiopathic Qualified Code(s): M10.071 - Idiopathic gout, right ankle and foot - Discharge Information *PRESCRIPTION DRUG MONITORING PROGRAM REVIEWED*: Yes *COPY OF PRESCRIPTION DRUG MONITORING REPORT IN PATIENT CONCEPCION: Yes Instructions: Low-Purine Eating Plan, Gout, [id number] Referrals: Kamryn Ren DO [Primary Care Provider] - Forms: ED Department Discharge Additional Instructions: Take all medications as directed. Follow up with your PCP in the next two to four days. Drink plenty of clear liquids for the next 24-48 hours. Rest for the next 24 hours. Return to the ED if your condition gets worse or should you have any questions or concerns. The following information is given to patients seen in the emergency department who are being discharged to home. This information is to outline your options for follow-up care. We provide all patients seen in our emergency department with a follow-up referral. The need for follow-up, as well as the timing and circumstances, are variable depending upon the specifics of your emergency department visit. If you don't have a primary care physician on staff, we will provide you with a referral. We always advise you to contact your personal physician following an emergency department visit to inform them of the circumstance of the visit and for follow-up with them and/or the need for any referrals to a consulting specialist. The emergency department will also refer you to a specialist when appropriate. This referral assures that you have the opportunity for follow-up care with a specialist. All of these measure are taken in an effort to provide you with optimal care, which includes your follow-up. Under all circumstances we always encourage you to contact your private physician who remains a resource for coordinating your care. When calling for follow-up care, please make the office aware that this follow-up is from your recent emergency room visit. If for any reason you are refused follow-up, please contact the [facility] Emergency Department at and asked to speak to the emergency department charge nurse. Sepsis Event Note - Evaluation Sepsis Screening Result: No Definite Risk - Focused Exam Vital Signs: Vital Signs Temp Pulse Resp BP Pulse Ox 09/02/19 13:18 97.6 F 96 16 162/100 H 100 09/02/19 12:43 96.8 F 103 H 18 181/119 H 98 Date Exam was Performed: 09/02/19 Time Exam was Performed: 14:31 - My Orders Last 24 Hours: My Active Orders 09/02/19 13:00 Pantoprazole [ProTONIX] 40 mg PO STAT predniSONE 40 mg PO STAT - Assessment/Plan Last 24 Hours: My Active Orders 09/02/19 13:00 Pantoprazole [ProTONIX] 40 mg PO STAT predniSONE 40 mg PO STAT
[2019-09-02 13:19] VITALS: BP 162/100; PULSE 96
[2019-09-02 14:04] LABS: BLOOD UREA NITROGEN,BUN 11 mg/dL (7.0-18.0); CARBON DIOXIDE,CO2 29.1 mmol/L (21.0-32.0); CHLORIDE,CL 104 mmol/L (98-107); GLUCOSE RANDOM 117 mg/dL (74-106); POTASSIUM,K 4.8 mmol/L (3.5-5.1); SODIUM,NA 140 mmol/L (136-148)
--- NOTE | 2019-09-02 14:17 | CR ---
Chest: 2 views of the chest were obtained. Comparison: No previous chest x-ray. Heart size is within normal limits. Tortuous thoracic aorta is noted. Lungs are clear with no acute parenchymal change. Bony structures are unremarkable for the patient's age. Impression: 1. Nothing acute is appreciated on 2 view chest x-ray. Diagnostic code #1 This report was dictated in [place] Standard Time
== END 2019-09-02 14:52 | disposition home or self-care (01) ==
LOC: MW.ED 12:35
DX: M10.071 Idiopathic gout, right ankle and foot (principal); F17.210 Nicotine dependence, cigarettes, uncomplicated; I10 Essential (primary) hypertension; F90.9 Attention-deficit hyperactivity disorder, unspecified type; Z79.899 Other long term (current) drug therapy; Z88.5 Allergy status to narcotic agent
CPT/HCPCS: 36415; 71046; 80053; 84550; 85025; 99283; A9270

== ENCOUNTER 2019-09-23 13:57 | Emergency (ER) | payer SELFPAY ==
[2019-09-23 14:14] VITALS: BP 185/95; PULSE 130
--- NOTE | 2019-09-23 14:23 | EDM.PDOC ---
ED HPI GENERAL MEDICAL PROBLEM - General Chief Complaint: General Stated Complaint: GOUT Time Seen by Provider: 09/23/19 14:21 Source of Information: Reports: Patient History Limitations: Reports: No Limitations - History of Present Illness INITIAL COMMENTS - FREE TEXT/NARRATIVE: This 49 year old male with a history of gout arthritis is admitted to the ED today with a chief complaint of severe pain in his left knee joint as well as pain in his right dorsal hand. I have treated him before for gout and he did well on Prednisone. left knee, right wrist Pain Score (Numeric/FACES): 8 - Related Data Allergies Allergy/AdvReac Type Severity Reaction Status Date / Time meperidine HCl [From Demerol] Allergy Redness Verified 09/23/19 14:14 Home Meds: Home Meds Allopurinol [Zyloprim] 100 mg PO DAILY 08/02/19 [History] Indomethacin 50 mg PO TID 09/02/19 [History] predniSONE [Prednisone] 30 mg PO DAILY 5 Days #15 tablet 09/02/19 [Rx] predniSONE [Prednisone] 10 mg PO ASDIRECTED 5 Days #9 tab.ds.pk 09/23/19 [Rx] Past Medical History HEENT History: Reports: None Cardiovascular History: Reports: Hypertension Respiratory History: Reports: None Gastrointestinal History: Reports: None Genitourinary History: Reports: None Musculoskeletal History: Reports: Gout Neurological History: Reports: None Psychiatric History: Reports: ADHD Endocrine/Metabolic History: Reports: None Hematologic History: Reports: None Immunologic History: Reports: None Oncologic (Cancer) History: Reports: None Dermatologic History: Reports: None - Infectious Disease History Infectious Disease History: Reports: None - Past Surgical History Head Surgeries/Procedures: Reports: None HEENT Surgical History: Reports: None Cardiovascular Surgical History: Reports: None Respiratory Surgical History: Reports: None GI Surgical History: Reports: None Male Surgical History: Reports: None Musculoskeletal Surgical History: Reports: Amputation Oncologic Surgical History: Reports: None Social & Family History - Family History Family Medical History: Noncontributory - Tobacco Use Smoking Status *Q: Current Some Day Smoker Years of Tobacco use: 2 Packs/Tins Daily: 0.1 - Caffeine Use Caffeine Use: Reports: None - Alcohol Use Days Per Week of Alcohol Use: 7 Number of Drinks Per Day: 6 Total Drinks Per Week: 42 - Recreational Drug Use Recreational Drug Use: Yes Drug Use in Last 12 Months: Yes Recreational Drug Type: Reports: Marijuana/Hashish Recreational Drug Use Frequency: Weekly ED ROS GENERAL - Review of Systems Review Of Systems: See Below Constitutional: Reports: No Symptoms HEENT: Reports: No Symptoms Respiratory: Reports: No Symptoms Cardiovascular: Reports: No Symptoms Endocrine: Reports: No Symptoms GI/Abdominal: Reports: No Symptoms : Reports: No Symptoms Musculoskeletal: Reports: Joint Pain (left knee is swollen and tender to the point that it is hard for him to walk.), Other (right hand is warm and tender) Skin: Reports: Erythema (right hand and left knee) Neurological: Reports: No Symptoms ED EXAM, GENERAL - Physical Exam Exam: See Below Exam Limited By: No Limitations General Appearance: Alert Eye Exam: Bilateral Eye: EOMI, PERRL Ears: Normal External Exam, Normal Canal, Hearing Grossly Normal, Normal TMs Ear Exam: Bilateral Ear: Auricle Normal, Canal Normal, TM normal Throat/Mouth: Normal Inspection, Normal Lips, Normal Teeth, Normal Gums, Normal Oropharynx, Normal Voice, No Airway Compromise Head: Atraumatic, Normocephalic Neck: Normal Inspection, Supple, Non-Tender, Full Range of Motion Respiratory/Chest: No Respiratory Distress, Lungs Clear, Normal Breath Sounds, No Accessory Muscle Use, Chest Non-Tender Cardiovascular: Normal Peripheral Pulses, Regular Rate, Rhythm, No Edema, No Gallop Peripheral Pulses: 3+: Radial (L), Radial (R), Dorsalis Pedis (L), Dorsalis Pedis (R) GI/Abdominal: Normal Bowel Sounds, Soft, Non-Tender, No Organomegaly, No Distention, No Abnormal Bruit, No Mass (Male) Exam: Deferred Rectal (Males) Exam: Deferred Back Exam: Normal Inspection Extremities: Normal Capillary Refill, Joint Swelling (left knee effusion is palpated which will need drainage. The right doral hand is swollen and tender to the touch. Increase temp over the right hand and left knee.), Limited Range of Motion (due to swelling of the left knee). No: Daniel's Sign Neurological: Alert, Oriented, CN II-XII Intact, Normal Cognition, Normal Gait, Normal Reflexes, No Motor/Sensory Deficits ED JOINT ASPIRATION PROCEDURE - Joint Apsiration/Arthrocentesis Skin prep: Providone-Iodine (Betadine) Local anesthesia: Lidocaine: Other (none) Aspirate appearance: serous (10ml), other (yellow clear fluid measuring 25ml) Aspirate amount in cc's: 35 Dressing: elastic/compression wrap Complications: No Progress/Comments: The patient tolerated the procedure well. The puncture wound was covered with a bandage and an solange wrap was applied. Course - Vital Signs Text/Narrative:: I went over the procedure with the patient. I also discussed all of his diagnostic test. He will be discharged. He agrees with the discharge plan. Last Recorded V/S: Last Vital Signs Temp 97.4 F 09/23/19 14:12 Pulse 130 H 09/23/19 14:12 Resp 18 09/23/19 14:12 BP 185/95 H 09/23/19 14:12 Pulse Ox 96 09/23/19 14:12 - Orders/Labs/Meds Labs: Laboratory Tests 09/23/19 09/23/19 Range/Units 15:10 15:10 WBC 11.26 H (4.0-11.0) K/uL RBC 5.65 (4.50-5.90) M/uL Hgb 16.3 (13.0-17.0) g/dL Hct 48.3 (38.0-50.0) % MCV 85.5 (80.0-98.0) fL MCH 28.8 (27.0-32.0) pg MCHC 33.7 (31.0-37.0) g/dL RDW Std Deviation 40.7 (28.0-62.0) fl RDW Coeff of Yunior 13 (11.0-15.0) % Plt Count 231 (150-400) K/uL MPV 9.50 (7.40-12.00) fL Neut % (Auto) 79.2 (48.0-80.0) % Lymph % (Auto) 14.9 L (16.0-40.0) % [place] % (Auto) 5.6 (0.0-15.0) % Eos % (Auto) 0.2 (0.0-7.0) % Baso % (Auto) 0.1 (0.0-1.5) % Neut # (Auto) 8.9 H (1.4-5.7) K/uL Lymph # (Auto) 1.7 (0.6-2.4) K/uL [place] # (Auto) 0.6 (0.0-0.8) K/uL Eos # (Auto) 0.0 (0.0-0.7) K/uL Baso # (Auto) 0.0 (0.0-0.1) K/uL Nucleated RBC % 0.0 /100WBC Nucleated RBCs # 0 K/uL Sodium 140 (136-148) mmol/L Potassium 3.9 (3.5-5.1) mmol/L Chloride 104 (98-107) mmol/L Carbon Dioxide 21.1 (21.0-32.0) mmol/L BUN 11 (7.0-18.0) mg/dL Creatinine 1.1 (0.8-1.3) mg/dL Est Cr Clr Drug Dosing 79.45 mL/min Estimated GFR (MDRD) > 60.0 ml/min Glucose 124 H (74-106) mg/dL Uric Acid 7.3 H (2.6-7.2) mg/dL Calcium 9.5 (8.5-10.1) mg/dL Total Bilirubin 0.9 (0.2-1.0) mg/dL AST 12 L (15-37) IU/L ALT 25 (14-63) IU/L Alkaline Phosphatase 102 (46-116) U/L Total Protein 7.7 (6.4-8.2) g/dL Albumin 3.8 (3.4-5.0) g/dL Globulin 3.9 (2.6-4.0) g/dL Albumin/Globulin Ratio 1.0 (0.9-1.6) Meds: Medications Discontinued Medications Generic Name Dose Route Start Last Admin Trade Name Freq PRN Reason Stop Dose Admin Prednisone 30 mg 09/23/19 16:14 09/23/19 16:28 Prednisone PO 09/23/19 16:15 30 mg ONETIME STA Administration Tramadol HCl 100 mg 09/23/19 16:15 09/23/19 16:29 Ultram PO 09/23/19 16:16 100 mg ONETIME ONE Administration Departure - Departure Time of Disposition: 17:40 Disposition: Home, Self-Care 01 Condition: Good Clinical Impression: Effusion of knee joint, left Gout attack Qualifiers: Gout site: unspecified site Gout etiology: unspecified cause Qualified Code(s) : M10.9 - Gout, unspecified - Discharge Information *PRESCRIPTION DRUG MONITORING PROGRAM REVIEWED*: Yes *COPY OF PRESCRIPTION DRUG MONITORING REPORT IN PATIENT CONCEPCION: Yes Prescriptions: predniSONE [Prednisone] 10 mg PO ASDIRECTED 5 Days #9 tab.ds.pk Instructions: Low-Purine Eating Plan, Knee Effusion, [id number], Gout, Easy- to-Read, Knee Arthrocentesis Referrals: Kamryn Ren DO [Primary Care Provider] - Forms: ED Department Discharge Additional Instructions: Take all medications as directed. Follow up with your PCP in the next two to four days. Drink plenty of clear liquids for the next 24-48 hours. Rest for the next 24 hours. Return to the ED if your condition gets worse or should you have any questions or concerns. The following information is given to patients seen in the emergency department who are being discharged to home. This information is to outline your options for follow-up care. We provide all patients seen in our emergency department with a follow-up referral. The need for follow-up, as well as the timing and circumstances, are variable depending upon the specifics of your emergency department visit. If you don't have a primary care physician on staff, we will provide you with a referral. We always advise you to contact your personal physician following an emergency department visit to inform them of the circumstance of the visit and for follow-up with them and/or the need for any referrals to a consulting specialist. The emergency department will also refer you to a specialist when appropriate. This referral assures that you have the opportunity for follow-up care with a specialist. All of these measure are taken in an effort to provide you with optimal care, which includes your follow-up. Under all circumstances we always encourage you to contact your private physician who remains a resource for coordinating your care. When calling for follow-up care, please make the office aware that this follow-up is from your recent emergency room visit. If for any reason you are refused follow-up, please contact the [facility] Emergency Department at and asked to speak to the emergency department charge nurse. Sepsis Event Note - Evaluation Sepsis Screening Result: No Definite Risk - Focused Exam Vital Signs: Vital Signs Temp Pulse Resp BP Pulse Ox 09/23/19 14:12 97.4 F 130 H 18 185/95 H 96 Date Exam was Performed: 09/23/19 Time Exam was Performed: 17:49
[2019-09-23 15:46] LABS: BLOOD UREA NITROGEN,BUN 11 mg/dL (7.0-18.0); CARBON DIOXIDE,CO2 21.1 mmol/L (21.0-32.0); CHLORIDE,CL 104 mmol/L (98-107); GLUCOSE RANDOM 124 mg/dL (74-106); POTASSIUM,K 3.9 mmol/L (3.5-5.1); SODIUM,NA 140 mmol/L (136-148)
[2019-09-23] MEDS ORDERED: predniSONE 10 MG Tab PO STA (16:14)
[2019-09-23] MEDS ORDERED: traMADol 50 MG Tab PO ONE (16:15)
== END 2019-09-23 17:50 | disposition home or self-care (01) ==
LOC: MW.ED 13:57
DX: M25.462 Effusion, left knee (principal); M10.9 Gout, unspecified; I10 Essential (primary) hypertension; F17.210 Nicotine dependence, cigarettes, uncomplicated; Z88.8 Allergy status to other drugs, medicaments and biological substances
CPT/HCPCS: 20610; 36415; 80053; 84550; 85025; 99283; A9270

== ENCOUNTER 2019-10-01 01:35 | Emergency (ER) | payer MEDICAID, OTHER ==
[2019-10-01] MEDS ORDERED: Colchicine 0.6 MG Tab PO ONE (01:58)
[2019-10-01] MEDS ORDERED: predniSONE 20 MG Tab PO ONE (01:59)
[2019-10-01] MEDS ORDERED: Ibuprofen 800 MG Tab PO ONE (02:00)
[2019-10-01] MEDS ORDERED: oxyCODONE ER 10 MG TAB.ER PO ONE (02:00)
[2019-10-01] MEDS ORDERED: oxyCODONE 5 MG Tab ONE (02:04)
[2019-10-01 02:05] VITALS: PULSE 102
[2019-10-01] MEDS ORDERED: oxyCODONE 5 MG Tab PO ONE ×2 (02:08→03:08)
--- NOTE | 2019-10-01 02:22 | EDM.PDOC ---
ED HPI GENERAL MEDICAL PROBLEM - General Chief Complaint: Lower Extremity Injury/Pain Stated Complaint: GOUT IN RT LEG Time Seen by Provider: 10/01/19 01:50 Source of Information: Reports: Patient - History of Present Illness INITIAL COMMENTS - FREE TEXT/NARRATIVE: The patient is a 49-year-old male who presents to the ER secondary to right ankle pain. The patient states that he was diagnosed with gout here in the emergency department a while ago. He states that he periodically gets inflammation and redness and pain in his joints, sometimes both ankles, sometimes his knees, sometimes even his wrists. 1 of the emergency physicians here had drained his knee at one time when it was inflamed and the results came back consistent with gout. The patient has had prescription for indomethacin and prednisone but he has never been on any other gout medications. He states that he has not seen his primary care physician because she is several months out and he has not been able to get in. He states that these flareups are getting worse and it is affecting his quality of life and he has not been able to work and this is upsetting him. Currently his flareup is in his medial right ankle. right foot/ankle Pain Score (Numeric/FACES): 10 - Related Data Allergies Allergy/AdvReac Type Severity Reaction Status Date / Time meperidine HCl [From Demerol] Allergy Redness Verified 10/01/19 02:03 Home Meds: Home Meds Allopurinol [Zyloprim] 100 mg PO DAILY 08/02/19 [History] Indomethacin 50 mg PO TID 09/02/19 [History] predniSONE [Prednisone] 30 mg PO DAILY 5 Days #15 tablet 09/02/19 [Rx] predniSONE [Prednisone] 10 mg PO ASDIRECTED 5 Days #9 tab.ds.pk 09/23/19 [Rx] Colchicine 0.6 mg PO Q12HR 30 Days #60 tablet 10/01/19 [Rx] predniSONE [Prednisone] 80 mg PO 5XDAY #20 tablet 10/01/19 [Rx] Past Medical History HEENT History: Reports: None Cardiovascular History: Reports: Hypertension Respiratory History: Reports: None Gastrointestinal History: Reports: None Genitourinary History: Reports: None Musculoskeletal History: Reports: Gout Neurological History: Reports: None Psychiatric History: Reports: ADHD Endocrine/Metabolic History: Reports: None 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 Pump Model 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 Full Stack Python 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: N/A Hematologic History: Reports: None Immunologic History: Reports: None Oncologic (Cancer) History: Reports: None Dermatologic History: Reports: None - Infectious Disease History Infectious Disease History: Reports: None - Past Surgical History Head Surgeries/Procedures: Reports: None HEENT Surgical History: Reports: None Cardiovascular Surgical History: Reports: None Respiratory Surgical History: Reports: None GI Surgical History: Reports: None Male Surgical History: Reports: None Musculoskeletal Surgical History: Reports: Amputation Oncologic Surgical History: Reports: None Social & Family History - Family History Family Medical History: Noncontributory - Tobacco Use Smoking Status *Q: Never Smoker - Caffeine Use Caffeine Use: Reports: None - Recreational Drug Use Recreational Drug Use: Yes Drug Use in Last 12 Months: Yes Recreational Drug Type: Reports: Marijuana/Hashish Review of Systems - Review of Systems Review Of Systems: See Below (Right ankle pain, negative for fevers, all other Positives and pertinent negatives as per HPI. All other pertinent systems were reviewed and are negative) ED EXAM, GENERAL - Physical Exam Exam: See Below Free Text/Narrative:: Constitutional: Appears uncomfortable, Non-toxic appearance. HEENT: Normocephalic, Atraumatic, EOMI Neck: Normal range of motion, No stridor, trachea midline Respiratory: No respiratory distress, No tachypnea Cardiovascular: Deferred Gastrointestinal: Deferred Genital / Urinary: Deferred Musculoskeletal: All four extremities present and atraumatic, the right medial ankle is erythematous and warm and tender to the touch Back: FROM Integument: Warm, Dry, Color is ethnicity appropriate, No rash. Neuro: Alert, Awake, No focal deficits noted Psych: Affect, Judgement, mood normal Course - Vital Signs Text/Narrative:: History and exam and apparently a recent arthrocentesis are consistent with gout , but the patient has never had any true work-up for autoimmune diseases, etc. However, I talked to the patient in detail that he does need appropriate follow- up and he does understand. He states that in the past he has been given what sounds like a quick prednisone taper and he gets better within a day but as soon as he starts tapering he gets worse again. I spoke with him in detail that prednisone does not need to be tapered right away and I will put him on a persistent course for 7 days. I will also start the patient on colchicine, and in the ER he will be given 1 dose of ibuprofen 800 mg and 1 tablet of OxyContin 10 mg extended release to help get him through the night and hopefully since he has responded to prednisone so well in the past by the time the morning comes his pain will be significantly improved. Last Recorded V/S: Last Vital Signs Temp 36.2 C 10/01/19 01:45 Pulse 102 H 10/01/19 01:45 Resp 18 10/01/19 01:45 BP 144/88 H 10/01/19 01:45 Pulse Ox 98 10/01/19 01:45 - Orders/Labs/Meds Meds: Medications Discontinued Medications Generic Name Dose Route Start Last Admin Trade Name Eunice PRN Reason Stop Dose Admin Colchicine 1.2 mg 10/01/19 01:58 10/01/19 02:10 Colcrys PO 10/01/19 01:59 1.2 mg ONETIME ONE Administration Ibuprofen 800 mg 10/01/19 02:00 10/01/19 02:10 Motrin PO 10/01/19 02:01 800 mg ONETIME ONE Administration Oxycodone HCl 10 mg 10/01/19 02:00 Oxycontin PO 10/01/19 02:01 ONETIME ONE Oxycodone HCl Confirm 10/01/19 02:04 Oxycodone Administered 10/01/19 02:05 Dose 10 mg .ROUTE .STK-MED ONE Oxycodone HCl 10 mg 10/01/19 02:08 10/01/19 02:09 Oxycodone PO 10/01/19 02:09 10 mg ONETIME ONE Administration Prednisone 80 mg 10/01/19 01:59 10/01/19 02:11 Prednisone PO 10/01/19 02:00 80 mg ONETIME ONE Administration Departure - Departure Time of Disposition: 02:29 Disposition: Home, Self-Care 01 Condition: Good Clinical Impression: Gout Qualifiers: Gout site: multiple sites Gout etiology: unspecified cause Chronicity: chronic Qualified Code(s): M1A.09X0 - Idiopathic chronic gout, multiple sites, without tophus (tophi) - Discharge Information *PRESCRIPTION DRUG MONITORING PROGRAM REVIEWED*: Not Applicable *COPY OF PRESCRIPTION DRUG MONITORING REPORT IN PATIENT CONCEPCION: Not Applicable Referrals: Kamryn Ren DO [Primary Care Provider] - Additional Instructions: Use plenty of ice, take ibuprofen 800 mg and Tylenol 1000 mg together every 6 hours as needed for pain. Use the prescriptions as written. Call your doctor for close follow-up. Sepsis Event Note - Evaluation Sepsis Screening Result: No Definite Risk - Focused Exam Vital Signs: Vital Signs Temp Pulse Resp BP Pulse Ox 10/01/19 01:45 36.2 C 102 H 18 144/88 H 98 Date Exam was Performed: 10/01/19 Time Exam was Performed: 02:17
[2019-10-01 04:32] VITALS: BP 137/71
== END 2019-10-01 03:30 | disposition home or self-care (01) ==
LOC: MW.ED 01:35
DX: M1A.9XX0 Chronic gout, unspecified, without tophus (tophi) (principal); I10 Essential (primary) hypertension; Z88.8 Allergy status to other drugs, medicaments and biological substances; Z79.899 Other long term (current) drug therapy
CPT/HCPCS: 99283; A9270

== ENCOUNTER 2019-10-20 08:36 | Emergency (ER) | payer SELFPAY ==
[2019-10-20 09:44] VITALS: BP 154/109; PULSE 104
--- NOTE | 2019-10-20 10:05 | EDM.PDOC ---
ED HPI GENERAL MEDICAL PROBLEM - General Chief Complaint: Lower Extremity Injury/Pain Stated Complaint: GOUT Time Seen by Provider: 10/20/19 10:02 Source of Information: Reports: Patient History Limitations: Reports: No Limitations - History of Present Illness INITIAL COMMENTS - FREE TEXT/NARRATIVE: HISTORY AND PHYSICAL: History of present illness: Patient is a 49-year-old male who presents to the emergency room today with complaints of gout flare. Patient states he has been having gout flares more frequently over the past several months. States he was last seen in the ER approximately a month ago for a gout flare to his ankles. Today he is having pain and mild swelling and tenderness of the right wrist. Denies any injury or trauma. Denies any numbness or tingling. Patient denies any fever, chills, headache, change in vision, syncope or near syncope. Denies any chest pain, back pain, shortness of breath or cough. Denies any GI or symptoms. Patient has been eating and drinking appropriately. Review of systems: As per history of present illness and below otherwise all systems reviewed and negative. Past medical history: As per history of present illness and as reviewed below otherwise noncontributory. Surgical history: As per history of present illness and as reviewed below otherwise noncontributory. Social history: See social history for further information Family history: As per history of present illness and as reviewed below otherwise noncontributory. Physical exam: General: Well developed and well-nourished 49-year-old male. Alert and oriented. Nontoxic-appearing and in no acute distress. HEENT: Atraumatic, normocephalic, pupils equal and reactive bilaterally, negative for conjunctival pallor or scleral icterus, mucous membranes moist, trachea midline. No drooling or trismus noted. No meningeal signs. No hot potato voice noted. Lungs: Clear to auscultation, breath sounds equal bilaterally. Heart: S1S2, regular rate and rhythm without overt murmur Abdomen: Soft, nondistended, nontender. Skin: Intact, warm, dry. No lesions or rashes noted. Extremities: Atraumatic, moves all extremities per self without difficulty or deficits, pain with palpation of the right wrist. Strong radial pulse. Strong and equal pitch worker strength bilaterally. Cap refill less than 3 seconds. Neurovascular unremarkable. Neuro: Awake, alert, oriented. Cranial nerves II through XII unremarkable. Cerebellum unremarkable. Motor and sensory unremarkable throughout. Exam nonfocal. Notes: Reports that he just got a phone call from his employer stating he needed to return to work. He is declining all diagnostics. Requesting a prescription for indomethacin and prednisone. We did discuss the importance of establishing care with a primary care provider as he has had several ER trips for medication refill and treatment of his acute on chronic gout flares. Supportive care measures were reviewed and discussed. Voices understanding and is agreeable to plan of care. Denies any further questions or concerns at this time. Diagnostics: Declines Therapeutics: Declines Prescription: Prednisone and Indomethacin Impression: Gout Medication refill Plan: 1. Take the medications as prescribed 2. As we discussed if your symptoms do not improve you need to follow-up with primary care and/or come back to the emergency room Definitive disposition and diagnosis as appropriate pending reevaluation and review of above. Bilateral Hand Pain Score (Numeric/FACES): 7 - Related Data Allergies Allergy/AdvReac Type Severity Reaction Status Date / Time meperidine HCl [From Demerol] Allergy Redness Verified 10/01/19 02:03 Home Meds: Home Meds Colchicine 0.6 mg PO Q12HR 30 Days #60 tablet 10/01/19 [Rx] Indomethacin 50 mg PO TID PRN 10 Days #30 capsule 10/20/19 [Rx] predniSONE [Prednisone] 30 mg PO DAILY 5 Days #15 tablet 10/20/19 [Rx] Past Medical History HEENT History: Reports: None Cardiovascular History: Reports: Hypertension Respiratory History: Reports: None Gastrointestinal History: Reports: None Genitourinary History: Reports: None Musculoskeletal History: Reports: Gout Neurological History: Reports: None Psychiatric History: Reports: ADHD Endocrine/Metabolic History: Reports: None 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 Hematologic History: Reports: None Immunologic History: Reports: None Oncologic (Cancer) History: Reports: None Dermatologic History: Reports: None - Infectious Disease History Infectious Disease History: Reports: None - Past Surgical History Head Surgeries/Procedures: Reports: None HEENT Surgical History: Reports: None Cardiovascular Surgical History: Reports: None Respiratory Surgical History: Reports: None GI Surgical History: Reports: None Male Surgical History: Reports: None Musculoskeletal Surgical History: Reports: Amputation Oncologic Surgical History: Reports: None Social & Family History - Family History Family Medical History: Noncontributory - Tobacco Use Smoking Status *Q: Never Smoker - Caffeine Use Caffeine Use: Reports: None - Alcohol Use Days Per Week of Alcohol Use: 7 Number of Drinks Per Day: 1 Total Drinks Per Week: 7 Date of Last Drink: 10/19/19 - Recreational Drug Use Recreational Drug Use: No Review of Systems - Review of Systems Review Of Systems: Comprehensive ROS is negative, except as noted in HPI. ED EXAM, GENERAL - Physical Exam Exam: See Below (See dictation) Course - Vital Signs Last Recorded V/S: Last Vital Signs Temp 98.0 F 10/20/19 09:39 Pulse 104 H 10/20/19 09:39 Resp 20 10/20/19 09:39 BP 154/109 H 10/20/19 09:39 Pulse Ox 96 10/20/19 09:39 Departure - Departure Time of Disposition: 10:04 Disposition: Home, Self-Care 01 Clinical Impression: Encounter for medication refill Gout Qualifiers: Gout site: wrist Gout etiology: unspecified cause Chronicity: unspecified Laterality: right Qualified Code(s): M10.9 - Gout, unspecified - Discharge Information Prescriptions: Indomethacin 50 mg PO TID PRN 10 Days #30 capsule PRN Reason: Pain predniSONE [Prednisone] 30 mg PO DAILY 5 Days #15 tablet Instructions: Low-Purine Eating Plan Referrals: Kamryn Ren DO [Primary Care Provider] - Forms: ED Department Discharge Additional Instructions: The following information is given to patients seen in the emergency department who are being discharged to home. This information is to outline your options for follow-up care. We provide all patients seen in our emergency department with a follow-up referral. The need for follow-up, as well as the timing and circumstances, are variable depending upon the specifics of your emergency department visit. If you don't have a primary care physician on staff, we will provide you with a referral. We always advise you to contact your personal physician following an emergency department visit to inform them of the circumstance of the visit and for follow-up with them and/or the need for any referrals to a consulting specialist. The emergency department will also refer you to a specialist when appropriate. This referral assures that you have the opportunity for follow-up care with a specialist. All of these measure are taken in an effort to provide you with optimal care, which includes your follow-up. Under all circumstances we always encourage you to contact your private physician who remains a resource for coordinating your care. When calling for follow-up care, please make the office aware that this follow-up is from your recent emergency room visit. If for any reason you are refused follow-up, please contact the [facility] at and asked to speak to the emergency department charge nurse. [facility] [address] [place] [id number] [id number] 1. Take the medications as prescribed 2. As we discussed if your symptoms do not improve you need to follow-up with primary care and/or come back to the emergency room Sepsis Event Note - Evaluation Sepsis Screening Result: No Definite Risk - Focused Exam Vital Signs: Vital Signs Temp Pulse Resp BP Pulse Ox 10/20/19 09:39 98.0 F 104 H 20 154/109 H 96 Date Exam was Performed: 10/20/19 Time Exam was Performed: 10:55
== END 2019-10-20 10:17 | disposition left against medical advice (07) ==
LOC: MW.ED 08:36
DX: M10.9 Gout, unspecified (principal); Z76.0 Encounter for issue of repeat prescription
CPT/HCPCS: 99283

== ENCOUNTER 2020-05-09 20:15 | Emergency (ER) | payer OTHER ==
[2020-05-09] MEDS ORDERED: Sodium Chloride 0.9% 2.5 ML Syringe FLUSH PRN (20:37)
[2020-05-09] MEDS ORDERED: Aspirin 81 MG Tab.Chew PO ONE (20:37)
[2020-05-09] MEDS ORDERED: Sodium Chloride 0.9% 10 ML Syringe FLUSH PRN (20:37)
[2020-05-09] MEDS: Nitroglycerin 0.4 MG Tab.SL SL PRN ×3 (20:48→20:58)
[2020-05-09 21:00] LABS: BLOOD UREA NITROGEN,BUN 20 mg/dL (7.0-18.0); CARBON DIOXIDE,CO2 26.5 mmol/L (21.0-32.0); CHLORIDE,CL 101 mmol/L (98-107); GLUCOSE RANDOM 96 mg/dL (74-106); LIPASE 76 U/L (73-393); POTASSIUM,K 3.8 mmol/L (3.5-5.1); SODIUM,NA 139 mmol/L (136-148)
[2020-05-09] MEDS ORDERED: Iopamidol 755 Mg/ML 100 ML Bottle IVPUSH ONE (21:25)
[2020-05-09] MEDS ORDERED: Furosemide 40 MG/4 ML VIAL IVPUSH ONE (21:38)
[2020-05-09] MEDS ORDERED: Ondansetron 4 MG/2 ML SDV IVPUSH ONE (21:39)
[2020-05-09] MEDS ORDERED: Morphine 4 MG/ML Syringe IVPUSH ONE (21:39)
[2020-05-09] MEDS ORDERED: Nitroglycerin 2% Oint 1 GM UD Packet TOP ONE (21:40)
--- NOTE | 2020-05-09 22:06 | CT ---
INDICATION: Short of breath, tachycardic TECHNIQUE: CT chest PE was acquired with 90 mL Omnipaque 370 IV contrast. COMPARISON: None. FINDINGS: Heart and vasculature: Contrast opacification of the pulmonary arterial tree is adequate. No sign of pulmonary embolism. Heart size is upper normal. Thoracic aorta and pulmonary artery are normal in caliber. Lungs and pleural: No suspicious nodules or infiltrates. Minimal, nonspecific ground-glass opacity in the inferior medial right middle lobe, images 51 through 54 of series 402, and within the bilateral lower lobes, which favor mild dependent change related to technical factors. No pleural effusions, pleural thickening, or pneumothorax. Lymph nodes/mediastinum: No mediastinal, hilar, or axillary adenopathy. Thyroid gland is normal. Chest wall: No masses. Upper abdomen: Normal. Bones: Unremarkable for age. IMPRESSION: 1. No evidence of pulmonary embolism. 2. Minimal ground-glass opacity in the inferior right lower lobe, possibly infectious or inflammatory. 3. Heart size is upper normal. Please note that all CT scans at this facility use dose modulation, iterative reconstruction, and/or weight-based dosing when appropriate to reduce radiation dose to as low as reasonably achievable. Dictated by Slick Contreras MD @ May 09 2020 9:55PM Signed by Dr. Slick Contreras @ May 09 2020 10:05PM
--- NOTE | 2020-05-09 22:43 | EDM.PDOC ---
ED HPI GENERAL MEDICAL PROBLEM - General Chief Complaint: Respiratory Problem Stated Complaint: some shortness of breath Time Seen by Provider: 05/09/20 20:26 - History of Present Illness INITIAL COMMENTS - FREE TEXT/NARRATIVE: HISTORY AND PHYSICAL: History of present illness: This is a 49-year-old gentleman with a history significant for hypertension with noncompliance with his medication who presents to the ER today secondary to increasing shortness of breath x3 months. Patient reports that he started feeling episodes of shortness of breath approximately 3 months ago however 2 weeks ago he noticed that the shortness of breath had significantly worsened. Patient reports over the last 24 to 48 hours he has noticed increasing episodes of shortness of breath along with difficulty laying flat in bed. Patient reports some mild bilateral lower extremity edema. Patient reports no episodes of paroxysmal nocturnal dyspnea, increased orthopnea, patient reports that he sleeps in a recliner secondary to difficulty breathing, increased dyspnea on exertion. 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 Patient denies any recent fevers, shakes, chills, diarrhea, vomiting, abdominal pain. Patient reports he has had episodes of nausea but no pain rating to his arms jaw or back. Patient reports intermittent episodes of diaphoresis. Patient reports he has a occasional nonproductive cough. Patient denies any calf tenderness or swelling. Patient denies any hemoptysis. Patient has any history of DVT or PE. Patient reports that he experiences occasional episodes of pain in his abdomen and chest that increases with inspiration and flexion of his torso. Patient reports that this discomfort is not exertional in nature, no radiating pain to his arms jaw or back, no related diaphoresis or nausea with the pain. Patient reports that he does drink approximately a pint to 1/5 of alcohol daily which she reports he started after starting to feel short of breath. Patient denies any tobacco use. Patient admits to occasional marijuana use. Patient denies any cocaine or stimulant use. Patient denies any diabetes, liver, lung, kidney problems. Patient denies any prior heart disease. Patient denies any prior stress test or cardiac catheterizations. Patient has any history of PE or DVT. Patient has any family history of PE or DVT. Review of systems: As per history of present illness and below otherwise all systems reviewed and negative. Past medical history: As per history of present illness and as reviewed below otherwise noncontributory. Surgical history: As per history of present illness and as reviewed below otherwise noncontributory. Social history: No reported history of drug or alcohol abuse. Family history: As per history of present illness and as reviewed below otherwise noncontributory. Physical exam: HEENT: Atraumatic, normocephalic, pupils reactive, negative for conjunctival pallor or scleral icterus, mucous membranes moist, throat clear, neck supple, nontender, trachea midline. Lungs: Clear to auscultation, patient with scant bibasilar Rales, tenderness pa lpation to his right and left anterior chest wall. Heart: S1S2, regular, negative for clicks, rubs, or JVD. Abdomen: Soft, nondistended, nontender. Negative for masses or hepatosplenomegaly. Negative for costovertebral tenderness. Pelvis: Stable nontender. Genitourinary: Deferred. Rectal: Deferred. Extremities: Atraumatic, negative for cords or calf pain. Neurovascular unremarkable. 1+ bipedal edema, no calf tenderness, no Homans' sign. Neuro: Awake, alert, oriented. Cranial nerves II through XII unremarkable. Cerebellum unremarkable. Motor and sensory unremarkable throughout. Exam nonfocal. Diagnostics: Troponin 0 0.157 BNP greater than 800 CBC, CMP otherwise unremarkable EKG #1: Normal sinus tachycardia heart rate of [address]-T wave abnormalities Normal axis Prolonged QTC No evidence of ST elevation GA As interpreted by ER physician: Ifeoma EKG #2: Secondary to elevated troponin Normal sinus rhythm heart rate of [address]-T wave abnormalities Normal axis No evidence of ST elevation GA As interpreted by ER physician: Ifeoma Therapeutics: Aspirin 325 mg p.o. Nitroglycerin sublingual x3 Morphine 4 mg IV Lasix 40 mg IV Nitropaste 1 inch to anterior chest wall Assessment and plan: 49-year-old gentleman with a history significant for hypertension and noncompliance presents ER today secondary to shortness of breath, hypertension with noncompliance,, orthopnea. Patient's ER work-up was significant for an elevated troponin and BNP. Patient's EKG showed no evidence of ST elevation GA. Patient CTA showed no evidence of PE or pneumonia. Patient's evaluation appears to be consistent with hypoxia secondary to likely CHF which is secondary to likely to hypertension and his noncompliance. Patient has been started on a heparin drip secondary to his elevated troponin and non-STEMI. Patient has been given sublingual nitroglycerin x3 secondary to his chest discomfort and elevated blood pressure Patient was given morphine 4 mg IV secondary to his elevated troponin and atypical chest discomfort Patient was given Lasix 40 mg IV secondary to his hypoxia and congestive heart failure. Patient was given aspirin and Nitropaste as well. Case discussed with [facility], no beds available. Case discussed with [facility], no beds available Case discussed with [facility] and they have agreed to assist us with transfer of this patient. Discussed case with with accepted patient for transfer. Critical Care: The high probability of sudden, clinically significant deterioration in the patient's condition required the highest level of my preparedness to intervene urgently. The services I provided to this patient were to treat and/or prevent clinically significant deterioration. Services included the following: chart data review, reviewing nursing notes and/or old charts, documentation time, peoplesoft hcm consultant collaboration regarding findings and treatment options, medication orders and management, direct patient care, vital sign assessments and ordering, interpreting and reviewing diagnostic studies/lab tests. Aggregate critical care time includes only time during which I was engaged inwork directly related to the patient's care, as described above, whether at the bedside or elsewhere in the Emergency Department. It did not include time spent performing other reported procedures or the services of residents, students, nurses or physician assistants. Critical Care Time: 35 minutes Definitive disposition and diagnosis as appropriate pending reevaluation and review of above. Chest Pain Score (Numeric/FACES): 7 - Related Data Allergies Allergy/AdvReac Type Severity Reaction Status Date / Time meperidine HCl [From Demerol] Allergy Redness Verified 05/09/20 20:19 Home Meds: Home Meds . [No Known Home Meds] 05/09/20 [History] Past Medical History HEENT History: Reports: None Cardiovascular History: Reports: Cardiomyopathy, Hypertension Respiratory History: Reports: None Gastrointestinal History: Reports: None Genitourinary History: Reports: None Musculoskeletal History: Reports: Gout Other Musculoskeletal History: carpal tunnel and scar tissue sx, reconstructive knee sx x7, R rotator cuff, R elbow, Neurological History: Reports: None Psychiatric History: Reports: ADHD Endocrine/Metabolic History: Reports: None Insulin Pump Model and Medical Imaging Specialist: N/A Hematologic History: Reports: None Immunologic History: Reports: None Oncologic (Cancer) History: Reports: None Dermatologic History: Reports: None - Infectious Disease History Infectious Disease History: Reports: Chicken Pox - Past Surgical History Head Surgeries/Procedures: Reports: None HEENT Surgical History: Reports: None Cardiovascular Surgical History: Reports: None Respiratory Surgical History: Reports: None GI Surgical History: Reports: None Male Surgical History: Reports: None Oncologic Surgical History: Reports: None Social & Family History - Family History Family Medical History: Noncontributory - Caffeine Use Caffeine Use: Reports: None - Alcohol Use Date of Last Drink: 05/09/20 Time of Last Drink: 14:30 - Recreational Drug Use Recreational Drug Type: Reports: Marijuana/Hashish ED ROS GENERAL - Review of Systems Review Of Systems: See Below ED EXAM, GENERAL - Physical Exam Exam: See Below #1 Interpretation EKG Interpretation Comments: EKG #1: Normal sinus tachycardia heart rate of [address]-T wave abnormalities Normal axis Prolonged QTC No evidence of ST elevation GA As interpreted by ER physician: Ifeoma #2 Interpretation EKG Interpretation Comments: EKG #2: Secondary to elevated troponin Normal sinus rhythm heart rate of [address]-T wave abnormalities Normal axis No evidence of ST elevation GA As interpreted by ER physician: Ifeoma Course - Vital Signs Last Recorded V/S: Last Vital Signs Temp 96.9 F 05/09/20 20:19 Pulse 101 H 05/09/20 22:27 Resp 21 H 05/09/20 22:27 BP 164/109 H 05/09/20 22:27 Pulse Ox 96 05/09/20 22:27 - Orders/Labs/Meds Orders: Active Orders 24 hr Category Date Time Status Cardiac Monitoring [RC] . DIRECTED Care 05/09/20 20:37 Active EKG 12 Lead [EKG Documentation Completion] [RC] STAT Care 05/09/20 22:11 Active EKG Documentation Completion [RC] STAT Care 05/09/20 21:40 Active Pulse Oximetry [RC] ASDIRECTED Care 05/09/20 20:37 Active UA W/JAIDA RFLX IF INDICATED [URIN] Stat Lab 05/09/20 20:39 Ordered Heparin Sod,Pork In 0.45% Nacl [Heparin-1/2Ns 25,000 Med 05/09/20 22:45 Active Units/500] 25,000 unit in 500 ml IV TITRATE Sodium Chloride 0.9% [Saline Flush] Med 05/09/20 20:37 Active 10 ml FLUSH ASDIRECTED PRN Sodium Chloride 0.9% [Saline Flush] Med 05/09/20 20:37 Active 2.5 ml FLUSH ASDIRECTED PRN Saline Lock Insert [OM.PC] Stat Oth 05/09/20 20:37 Ordered Medication Orders Heparin Sodium/Sodium Chloride (Heparin-1/2ns 25,000 Units/500) 25,000 unit in 500 mls @ 21.772 mls/hr IV TITRATE OCTAVIO; Protocol Last Admin: 05/09/20 23:03 Dose: 12 units/kg/hr, 21.772 mls/hr Documented by: SANGITA Cosigned by: MISSY Sodium Chloride (Saline Flush) 10 ml FLUSH ASDIRECTED PRN PRN Reason: Keep Vein Open Last Admin: 05/09/20 20:50 Dose: 10 ml Documented by: SANGITA Sodium Chloride (Saline Flush) 2.5 ml FLUSH ASDIRECTED PRN PRN Reason: Keep Vein Open Last Admin: 05/09/20 20:50 Dose: 2.5 ml Documented by: SANGITA Labs: Laboratory Tests 05/09/20 05/09/20 05/09/20 Range/Units 20:25 20:25 20:25 WBC 7.63 (4.0-11.0) K/uL RBC 5.21 (4.50-5.90) M/uL Hgb 16.0 (13.0-17.0) g/dL Hct 46.7 (38.0-50.0) % MCV 89.6 (80.0-98.0) fL MCH 30.7 (27.0-32.0) pg MCHC 34.3 (31.0-37.0) g/dL RDW Std Deviation 44.8 (28.0-62.0) fl RDW Coeff of Yunior 14 (11.0-15.0) % Plt Count 238 (150-400) K/uL MPV 9.60 (7.40-12.00) fL Neut % (Auto) 50.7 (48.0-80.0) % Lymph % (Auto) 37.4 (16.0-40.0) % Garza % (Auto) 10.6 (0.0-15.0) % Eos % (Auto) 0.9 (0.0-7.0) % Baso % (Auto) 0.4 (0.0-1.5) % Neut # (Auto) 3.9 (1.4-5.7) K/uL Lymph # (Auto) 2.9 H (0.6-2.4) K/uL Garza # (Auto) 0.8 (0.0-0.8) K/uL Eos # (Auto) 0.1 (0.0-0.7) K/uL Baso # (Auto) 0.0 (0.0-0.1) K/uL Nucleated RBC % 0.0 /100WBC Nucleated RBCs # 0 K/uL INR APTT (18.6-31.3) SEC D-Dimer, Quantitative 0.38 (0.0-0.50) mg/L FEU Sodium 139 (136-148) mmol/L Potassium 3.8 (3.5-5.1) mmol/L Chloride 101 (98-107) mmol/L Carbon Dioxide 26.5 (21.0-32.0) mmol/L BUN 20 H (7.0-18.0) mg/dL Creatinine 1.6 H (0.8-1.3) mg/dL Est Cr Clr Drug Dosing 54.63 mL/min Estimated GFR (MDRD) 46.4 ml/min Glucose 96 (74-106) mg/dL Calcium 9.2 (8.5-10.1) mg/dL Magnesium 1.8 (1.8-2.4) mg/dL Total Bilirubin 1.2 H (0.2-1.0) mg/dL AST 55 H (15-37) IU/L ALT 59 (14-63) IU/L Alkaline Phosphatase 137 H (46-116) U/L Troponin I 0.107 H* (0.000-0.056) ng/mL B-Natriuretic Peptide (<100) PG/ML Total Protein 7.1 (6.4-8.2) g/dL Albumin 3.9 (3.4-5.0) g/dL Globulin 3.2 (2.6-4.0) g/dL Albumin/Globulin Ratio 1.2 (0.9-1.6) Lipase 76 (73-393) U/L Ethyl Alcohol < 3.0 mg/dL SARS-CoV-2 RNA (SULAIMAN) (NEGATIVE) 05/09/20 05/09/20 05/09/20 Range/Units 20:25 20:25 20:25 WBC (4.0-11.0) K/uL RBC (4.50-5.90) M/uL Hgb (13.0-17.0) g/dL Hct (38.0-50.0) % MCV (80.0-98.0) fL MCH (27.0-32.0) pg MCHC (31.0-37.0) g/dL RDW Std Deviation (28.0-62.0) fl RDW Coeff of Yunior (11.0-15.0) % Plt Count (150-400) K/uL MPV (7.40-12.00) fL Neut % (Auto) (48.0-80.0) % Lymph % (Auto) (16.0-40.0) % Garza % (Auto) (0.0-15.0) % Eos % (Auto) (0.0-7.0) % Baso % (Auto) (0.0-1.5) % Neut # (Auto) (1.4-5.7) K/uL Lymph # (Auto) (0.6-2.4) K/uL Garza # (Auto) (0.0-0.8) K/uL Eos # (Auto) (0.0-0.7) K/uL Baso # (Auto) (0.0-0.1) K/uL Nucleated RBC % /100WBC Nucleated RBCs # K/uL INR 1.18 APTT 25.2 (18.6-31.3) SEC D-Dimer, Quantitative (0.0-0.50) mg/L FEU Sodium (136-148) mmol/L Potassium (3.5-5.1) mmol/L Chloride (98-107) mmol/L Carbon Dioxide (21.0-32.0) mmol/L BUN (7.0-18.0) mg/dL Creatinine (0.8-1.3) mg/dL Est Cr Clr Drug Dosing mL/min Estimated GFR (MDRD) ml/min Glucose (74-106) mg/dL Calcium (8.5-10.1) mg/dL Magnesium (1.8-2.4) mg/dL Total Bilirubin (0.2-1.0) mg/dL AST (15-37) IU/L ALT (14-63) IU/L Alkaline Phosphatase (46-116) U/L Troponin I (0.000-0.056) ng/mL B-Natriuretic Peptide 845 H (<100) PG/ML Total Protein (6.4-8.2) g/dL Albumin (3.4-5.0) g/dL Globulin (2.6-4.0) g/dL Albumin/Globulin Ratio (0.9-1.6) Lipase (73-393) U/L Ethyl Alcohol mg/dL SARS-CoV-2 RNA (SULAIMAN) (NEGATIVE) 05/09/20 Range/Units 21:55 WBC (4.0-11.0) K/uL RBC (4.50-5.90) M/uL Hgb (13.0-17.0) g/dL Hct (38.0-50.0) % MCV (80.0-98.0) fL MCH (27.0-32.0) pg MCHC (31.0-37.0) g/dL RDW Std Deviation (28.0-62.0) fl RDW Coeff of Yunior (11.0-15.0) % Plt Count (150-400) K/uL MPV (7.40-12.00) fL Neut % (Auto) (48.0-80.0) % Lymph % (Auto) (16.0-40.0) % Garza % (Auto) (0.0-15.0) % Eos % (Auto) (0.0-7.0) % Baso % (Auto) (0.0-1.5) % Neut # (Auto) (1.4-5.7) K/uL Lymph # (Auto) (0.6-2.4) K/uL Garza # (Auto) (0.0-0.8) K/uL Eos # (Auto) (0.0-0.7) K/uL Baso # (Auto) (0.0-0.1) K/uL Nucleated RBC % /100WBC Nucleated RBCs # K/uL INR APTT (18.6-31.3) SEC D-Dimer, Quantitative (0.0-0.50) mg/L FEU Sodium (136-148) mmol/L Potassium (3.5-5.1) mmol/L Chloride (98-107) mmol/L Carbon Dioxide (21.0-32.0) mmol/L BUN (7.0-18.0) mg/dL Creatinine (0.8-1.3) mg/dL Est Cr Clr Drug Dosing mL/min Estimated GFR (MDRD) ml/min Glucose (74-106) mg/dL Calcium (8.5-10.1) mg/dL Magnesium (1.8-2.4) mg/dL Total Bilirubin (0.2-1.0) mg/dL AST (15-37) IU/L ALT (14-63) IU/L Alkaline Phosphatase (46-116) U/L Troponin I (0.000-0.056) ng/mL B-Natriuretic Peptide (<100) PG/ML Total Protein (6.4-8.2) g/dL Albumin (3.4-5.0) g/dL Globulin (2.6-4.0) g/dL Albumin/Globulin Ratio (0.9-1.6) Lipase (73-393) U/L Ethyl Alcohol mg/dL SARS-CoV-2 RNA (SULAIMAN) NEGATIVE (NEGATIVE) Meds: Medications Generic Name Dose Route Start Last Admin Trade Name Freq PRN Reason Stop Dose Admin Heparin Sodium/Sodium Chloride 25,000 unit in 500 mls @ 21.772 mls/hr 05/09/20 22:45 05/09/20 23:03 Heparin-1/2ns 25,000 Units/500 IV 12 units/kg/hr TITRATE OCTAVIO 21.772 mls/hr Administration Protocol 12 UNITS/KG/HR Sodium Chloride 10 ml 05/09/20 20:37 05/09/20 20:50 Saline Flush FLUSH 10 ml ASDIRECTED PRN Administration Keep Vein Open Sodium Chloride 2.5 ml 05/09/20 20:37 05/09/20 20:50 Saline Flush FLUSH 2.5 ml ASDIRECTED PRN Administration Keep Vein Open Discontinued Medications Generic Name Dose Route Start Last Admin Trade Name Freq PRN Reason Stop Dose Admin Aspirin 324 mg 05/09/20 20:37 05/09/20 20:47 Aspirin PO 05/09/20 20:38 324 mg ONETIME ONE Administration Furosemide 40 mg 05/09/20 21:38 05/09/20 21:46 Lasix IVPUSH 05/09/20 21:39 40 mg NOW ONE Administration Heparin Sodium (Porcine) 5,000 units 05/09/20 22:47 05/09/20 23:07 Heparin Sodium IVPUSH 05/09/20 22:48 Not Given ONETIME ONE Heparin Sodium (Porcine) 4,000 units 05/09/20 22:56 05/09/20 23:00 Heparin Sodium IVPUSH 05/09/20 22:57 4,000 units ONETIME ONE Administration Iopamidol 100 ml 05/09/20 21:25 05/09/20 21:25 Isovue-370 (76%) IVPUSH 05/09/20 21:26 100 ml ONETIME ONE Administration Morphine Sulfate 4 mg 05/09/20 21:39 05/09/20 21:51 Morphine IVPUSH 05/09/20 21:40 4 mg ONETIME ONE Administration Nitroglycerin 0.4 mg 05/09/20 20:37 05/09/20 20:58 Nitrostat SL 0.4 mg Q5M PRN Administration Chest Pain Nitroglycerin 1 gm 05/09/20 21:40 05/09/20 21:49 Nitro-Bid 2% TOP 05/09/20 21:41 1 gm ONETIME ONE Administration Ondansetron HCl 4 mg 05/09/20 21:39 05/09/20 21:48 Zofran IVPUSH 05/09/20 21:40 4 mg ONETIME ONE Administration Departure - Departure Time of Disposition: 22:49 Disposition: DC/Tfer to Acute Hospital 02 Clinical Impression: Congestive heart failure, Non-STEMI (non-ST elevated myocardial infarction), Hypertension, accelerated, Elevated serum creatinine, Hypoxia, Pulmonary edema cardiac cause - Discharge Information Referrals: Kamryn Ren DO [Primary Care Provider] - Forms: ED Department Discharge Sepsis Event Note (ED) - Evaluation Sepsis Screening Result: No Definite Risk - Focused Exam Vital Signs: Vital Signs Temp Pulse Resp BP BP Pulse Ox 05/09/20 22:27 101 H 21 H 164/109 H 96 05/09/20 21:57 98 21 H 161/113 H 97 05/09/20 21:12 101 H 21 H 147/105 H 97 05/09/20 20:58 149/97 H 05/09/20 20:53 154/102 H 05/09/20 20:48 172/127 H 05/09/20 20:42 106 H 21 H 159/109 H 96 05/09/20 20:36 106 H 22 H 162/118 H 96 05/09/20 20:19 96.9 F 110 H 22 H 85/55 L 88 L - My Orders Last 24 Hours: My Active Orders 05/09/20 20:37 Cardiac Monitoring [RC] . DIRECTED Pulse Oximetry [RC] ASDIRECTED Sodium Chloride 0.9% [Saline Flush] 10 ml FLUSH ASDIRECTED PRN Sodium Chloride 0.9% [Saline Flush] 2.5 ml FLUSH ASDIRECTED PRN Saline Lock Insert [OM.PC] Stat 05/09/20 20:39 UA W/JAIDA RFLX IF INDICATED [URIN] Stat 05/09/20 21:40 EKG Documentation Completion [RC] STAT 05/09/20 22:11 EKG 12 Lead [EKG Documentation Completion] [RC] STAT 05/09/20 22:45 Heparin Sod,Pork In 0.45% Nacl [Heparin-1/2Ns 25,000 Units/500] 25,000 unit in 500 ml IV TITRATE - Assessment/Plan Last 24 Hours: My Active Orders 05/09/20 20:37 Cardiac Monitoring [RC] . DIRECTED Pulse Oximetry [RC] ASDIRECTED Sodium Chloride 0.9% [Saline Flush] 10 ml FLUSH ASDIRECTED PRN Sodium Chloride 0.9% [Saline Flush] 2.5 ml FLUSH ASDIRECTED PRN Saline Lock Insert [OM.PC] Stat 05/09/20 20:39 UA W/JAIDA RFLX IF INDICATED [URIN] Stat 05/09/20 21:40 EKG Documentation Completion [RC] STAT 05/09/20 22:11 EKG 12 Lead [EKG Documentation Completion] [RC] STAT 05/09/20 22:45 Heparin Sod,Pork In 0.45% Nacl [Heparin-1/2Ns 25,000 Units/500] 25,000 unit in 500 ml IV TITRATE
[2020-05-09] MEDS ORDERED: Heparin Sod,Pork In 0.45% Nacl 25,000 UNIT/500 ML IV.SOLN IV SCH (22:45)
[2020-05-09] MEDS ORDERED: Heparin Sodium 5,000 Units/ML Vial IVPUSH ONE ×2 (22:47→22:56)
[2020-05-10 00:24] VITALS: BP 164/116; PULSE 95
== END 2020-05-10 00:24 ==
LOC: MW.ED 20:15
DX: I21.4 Non-ST elevation (NSTEMI) myocardial infarction (principal); I11.0 Hypertensive heart disease with heart failure; I50.9 Heart failure, unspecified; J81.1 Chronic pulmonary edema; R09.02 Hypoxemia; R79.89 Other specified abnormal findings of blood chemistry; Z20.828 Contact with and (suspected) exposure to other viral communicable diseases; Z88.5 Allergy status to narcotic agent
CPT/HCPCS: 36415; 71275; 80053; 80307; 83690; 83735; 83880; 84484; 85025; 85379; 85610; 85730; 87635; 93005; 96365; 96375; 99285; A9270; J1644; J1940; J2270; J2405; Q9967; 99291; U0002

== ENCOUNTER 2020-09-13 07:16 | Emergency (ER) | payer SELFPAY ==
--- NOTE | 2020-09-13 07:27 | EDM.PDOC ---
ED HPI GENERAL MEDICAL PROBLEM - General Stated Complaint: DISORIENTED Time Seen by Provider: 09/13/20 07:23 Source of Information: Reports: Patient History Limitations: Reports: No Limitations - History of Present Illness INITIAL COMMENTS - FREE TEXT/NARRATIVE: 50-year-old male past medical history gout and alcohol abuse presents for disorientation. Patient has a past medical history of NSTEMI complicated by pulmonary edema of April last year. He was transferred to an outside hospital for further work-up and management. During that ER visit he did mention that he was drinking quite heavily. Today he presents for disorientation and multiple complaints. Patient states that he got up to go to work this morning and noted that he was confused, feeling lightheaded and dizzy, having numbness tingling sensation to hands. His coworker noted that he was acting very abnormally prompting him to bring him to the hospital. Patient denies any pain anywhere. He denies heavy drinking or drug use. He appears confused but he is calm and cooperative. - Related Data Allergies Allergy/AdvReac Type Severity Reaction Status Date / Time meperidine HCl [From Demerol] Allergy Redness Verified 09/13/20 07:35 Home Meds: Home Meds Citalopram [Citalopram HBr] 20 mg PO DAILY 09/13/20 [History] Indomethacin 50 mg PO TID PRN 09/13/20 [History] Past Medical History HEENT History: Reports: None Cardiovascular History: Reports: Cardiomyopathy, Hypertension Respiratory History: Reports: None Gastrointestinal History: Reports: None Genitourinary History: Reports: None Musculoskeletal History: Reports: Gout Other Musculoskeletal History: carpal tunnel and scar tissue sx, reconstructive knee sx x7, R rotator cuff, R elbow, Neurological History: Reports: None Psychiatric History: Reports: ADHD Endocrine/Metabolic History: Reports: None 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 Hematologic History: Reports: None Immunologic History: Reports: None Oncologic (Cancer) History: Reports: None Dermatologic History: Reports: None - Infectious Disease History Infectious Disease History: Reports: Chicken Pox - Past Surgical History Head Surgeries/Procedures: Reports: None HEENT Surgical History: Reports: None Cardiovascular Surgical History: Reports: None Respiratory Surgical History: Reports: None GI Surgical History: Reports: None Male Surgical History: Reports: None Oncologic Surgical History: Reports: None Social & Family History - Family History Family Medical History: No Pertinent Family History - Caffeine Use Caffeine Use: Reports: None ED ROS GENERAL - Review of Systems Review Of Systems: Comprehensive ROS is negative, except as noted in HPI. ED EXAM, GENERAL - Physical Exam Exam: See Below Exam Limited By: Altered Mental Status General Appearance: Alert, WD/WN, No Apparent Distress, Anxious Eye Exam: Bilateral Eye: EOMI, PERRL Throat/Mouth: Normal Voice, No Airway Compromise Head: Atraumatic, Normocephalic Neck: Normal Inspection Respiratory/Chest: No Respiratory Distress, Lungs Clear, Normal Breath Sounds, No Accessory Muscle Use Cardiovascular: Normal Peripheral Pulses, Regular Rate, Rhythm, No Edema GI/Abdominal: Soft, Non-Tender Extremities: Normal Inspection Neurological: Alert, Oriented, CN II-XII Intact, Normal Gait Psychiatric: Normal Mood, Anxious Skin Exam: Warm, Dry, Intact, Normal Color #1 Interpretation EKG Date: 09/13/20 Time: 07:18 Rhythm: Other (sinus) Rate (Beats/Min): 114 Benson: Normal P-Wave: Present QRS: Normal ST-T: Normal QT: Normal NE/PQ Interval: 150 Comparison: NA - No Prior EKG EKG Interpretation Comments: Sinus tachycardia without ischemic changes Course - Vital Signs Last Recorded V/S: Last Vital Signs Temp 96.7 F L 09/13/20 07:32 Pulse 98 09/13/20 09:08 Resp 18 09/13/20 09:08 BP 99/43 L 09/13/20 09:08 Pulse Ox 98 09/13/20 09:08 - Orders/Labs/Meds Orders: Active Orders 24 hr Category Date Time Status Cardiac Monitoring [RC] . DIRECTED Care 09/13/20 07:31 Active EKG Documentation Completion [RC] STAT Care 09/13/20 07:31 Active Pulse Oximetry [RC] ASDIRECTED Care 09/13/20 07:31 Active DRUG SCREEN, URINE [URCHEM] Stat Lab 09/13/20 07:34 Ordered UA W/JAIDA RFLX IF INDICATED [URIN] Stat Lab 09/13/20 07:32 Ordered Sodium Chloride 0.9% [Saline Flush] Med 09/13/20 07:31 Active 10 ml FLUSH ASDIRECTED PRN Sodium Chloride 0.9% [Saline Flush] Med 09/13/20 07:31 Active 2.5 ml FLUSH ASDIRECTED PRN Saline Lock Insert [OM.PC] Stat Oth 09/13/20 07:31 Ordered Medication Orders Sodium Chloride (Saline Flush) 10 ml FLUSH ASDIRECTED PRN PRN Reason: Keep Vein Open Last Admin: 09/13/20 08:06 Dose: 10 ml Documented by: NAKITA Sodium Chloride (Saline Flush) 2.5 ml FLUSH ASDIRECTED PRN PRN Reason: Keep Vein Open Last Admin: 09/13/20 08:07 Dose: 2.5 ml Documented by: NAKITA Labs: Laboratory Tests 09/13/20 09/13/20 09/13/20 Range/Units 07:28 07:28 07:28 WBC 13.16 H (4.0-11.0) K/uL RBC 4.29 L (4.50-5.90) M/uL Hgb 13.7 (13.0-17.0) g/dL Hct 38.7 (38.0-50.0) % MCV 90.2 (80.0-98.0) fL MCH 31.9 (27.0-32.0) pg MCHC 35.4 (31.0-37.0) g/dL RDW Std Deviation 44.0 (28.0-62.0) fl RDW Coeff of Yunior 13 (11.0-15.0) % Plt Count 327 (150-400) K/uL MPV 9.60 (7.40-12.00) fL Neut % (Auto) 62.4 (48.0-80.0) % Lymph % (Auto) 26.6 (16.0-40.0) % Zavala % (Auto) 8.8 (0.0-15.0) % Eos % (Auto) 1.8 (0.0-7.0) % Baso % (Auto) 0.4 (0.0-1.5) % Neut # (Auto) 8.2 H (1.4-5.7) K/uL Lymph # (Auto) 3.5 H (0.6-2.4) K/uL Zavala # (Auto) 1.2 H (0.0-0.8) K/uL Eos # (Auto) 0.2 (0.0-0.7) K/uL Baso # (Auto) 0.1 (0.0-0.1) K/uL Nucleated RBC % 0.0 /100WBC Nucleated RBCs # 0 K/uL Sodium 138 (136-148) mmol/L Potassium 4.2 (3.5-5.1) mmol/L Chloride 100 (98-107) mmol/L Carbon Dioxide 20.5 L (21.0-32.0) mmol/L BUN 48 H (7.0-18.0) mg/dL Creatinine 2.3 H (0.8-1.3) mg/dL Est Cr Clr Drug Dosing 37.59 mL/min Estimated GFR (MDRD) 30.4 ml/min Glucose 174 H (74-106) mg/dL Calcium 9.1 (8.5-10.1) mg/dL Magnesium 1.9 (1.8-2.4) mg/dL Total Bilirubin 0.6 (0.2-1.0) mg/dL AST 23 (15-37) IU/L ALT 37 (14-63) IU/L Alkaline Phosphatase 91 (46-116) U/L Ammonia < 17 L (19-54) ug/dL Creatine Kinase 315 H (26-308) U/L Troponin I < 0.050 (0.000-0.056) ng/mL Total Protein 7.5 (6.4-8.2) g/dL Albumin 3.9 (3.4-5.0) g/dL Globulin 3.6 (2.6-4.0) g/dL Albumin/Globulin Ratio 1.1 (0.9-1.6) TSH 3rd Generation 3.65 (0.36-3.74) uIU/mL Ethyl Alcohol <3 mg/dL SARS-CoV-2 RNA (SULAIMAN) (NEGATIVE) 09/13/20 Range/Units 08:45 WBC (4.0-11.0) K/uL RBC (4.50-5.90) M/uL Hgb (13.0-17.0) g/dL Hct (38.0-50.0) % MCV (80.0-98.0) fL MCH (27.0-32.0) pg MCHC (31.0-37.0) g/dL RDW Std Deviation (28.0-62.0) fl RDW Coeff of Yunior (11.0-15.0) % Plt Count (150-400) K/uL MPV (7.40-12.00) fL Neut % (Auto) (48.0-80.0) % Lymph % (Auto) (16.0-40.0) % Zavala % (Auto) (0.0-15.0) % Eos % (Auto) (0.0-7.0) % Baso % (Auto) (0.0-1.5) % Neut # (Auto) (1.4-5.7) K/uL Lymph # (Auto) (0.6-2.4) K/uL Zavala # (Auto) (0.0-0.8) K/uL Eos # (Auto) (0.0-0.7) K/uL Baso # (Auto) (0.0-0.1) K/uL Nucleated RBC % /100WBC Nucleated RBCs # K/uL Sodium (136-148) mmol/L Potassium (3.5-5.1) mmol/L Chloride (98-107) mmol/L Carbon Dioxide (21.0-32.0) mmol/L BUN (7.0-18.0) mg/dL Creatinine (0.8-1.3) mg/dL Est Cr Clr Drug Dosing mL/min Estimated GFR (MDRD) ml/min Glucose (74-106) mg/dL Calcium (8.5-10.1) mg/dL Magnesium (1.8-2.4) mg/dL Total Bilirubin (0.2-1.0) mg/dL AST (15-37) IU/L ALT (14-63) IU/L Alkaline Phosphatase (46-116) U/L Ammonia (19-54) ug/dL Creatine Kinase (26-308) U/L Troponin I (0.000-0.056) ng/mL Total Protein (6.4-8.2) g/dL Albumin (3.4-5.0) g/dL Globulin (2.6-4.0) g/dL Albumin/Globulin Ratio (0.9-1.6) TSH 3rd Generation (0.36-3.74) uIU/mL Ethyl Alcohol mg/dL SARS-CoV-2 RNA (SULAIMAN) NEGATIVE (NEGATIVE) Meds: Medications Generic Name Dose Route Start Last Admin Trade Name Eunice PRN Reason Stop Dose Admin Sodium Chloride 10 ml 09/13/20 07:31 09/13/20 08:06 Saline Flush FLUSH 10 ml ASDIRECTED PRN Administration Keep Vein Open Sodium Chloride 2.5 ml 09/13/20 07:31 09/13/20 08:07 Saline Flush FLUSH 2.5 ml ASDIRECTED PRN Administration Keep Vein Open Discontinued Medications Generic Name Dose Route Start Last Admin Trade Name Eunice PRN Reason Stop Dose Admin Chlordiazepoxide HCl 50 mg 09/13/20 07:34 09/13/20 08:06 Librium PO 09/13/20 07:35 50 mg ONETIME ONE Administration Sodium Chloride 1,000 mls @ 999 mls/hr 09/13/20 07:31 09/13/20 08:06 Normal Saline IV 09/13/20 08:31 999 mls/hr .Bolus ONE Administration Sodium Chloride 1,000 mls @ 999 mls/hr 09/13/20 08:40 09/13/20 09:06 Normal Saline IV 09/13/20 09:40 999 mls/hr .Bolus ONE Administration Lorazepam 2 mg 09/13/20 07:31 09/13/20 08:06 Ativan IVPUSH 09/13/20 07:32 2 mg ONETIME ONE Administration - Re-Assessments/Exams Free Text/Narrative Re-Assessment/Exam: 09/13/20 07:39 Patient presents with altered mental status and disorientation. His EKG is not concerning for ischemia although he is mildly tachycardic to 114. Will presumptively treat for alcohol withdrawal given patient's history of heavy dri nking, however other etiologies of symptoms need to be ruled out. Will get broad labs. 09/13/20 08:08 Aside from mild tachycardia, patient's vitals are grossly normal. O2 sat is 100% on room air. Blood pressure is soft in the systolic 90s but with MAP greater than 65. Wet read chest x-ray and head CT are normal. We will follow- up additional labs and disposition accordingly. 09/13/20 10:07 Labs remarkable for CALIN with creatinine bumped to 2.2. Baseline is 1.1. White blood cell count is mildly elevated at 13. Labs otherwise unremarkable. Will follow up urinalysis and UDS and dispo accordingly. Patient was ordered a 2 L IV fluid bolus. 09/13/20 10:32 Patient admits to doing methamphetamine this morning as well as smoking marijuana and drinking alcohol. I believe this is the cause of his disorientation. He does have mild CALIN but he has been given a 2 L fluid bolus. Recommend repeating labs with primary care physician. Will discharge patient home once follow-up. Departure - Departure Time of Disposition: 10:35 Disposition: Home, Self-Care 01 Condition: Good Clinical Impression: Dehydration, CALIN (acute kidney injury) - Discharge Information Instructions: Acute Kidney Injury, Adult Referrals: Kamryn Rne DO [Primary Care Provider] - Additional Instructions: Your labs show evidence of mild dehydration/kidney injury. You need to drink plenty of fluids over the next several days, and I recommend having your labs repeated by your primary care physician to ensure that this resolves. If you note that you stop urinating or your urine is a dark brown color then you need to come back to the emergency department for reassessment. The following information is given to patients seen in the emergency department who are being discharged to home. This information is to outline your options for follow-up care. We provide all patients seen in our emergency department with a follow-up referral. The need for follow-up, as well as the timing and circumstances, are variable depending upon the specifics of your emergency department visit. If you don't have a primary care physician on staff, we will provide you with a referral. We always advise you to contact your personal physician following an emergency department visit to inform them of the circumstance of the visit and for follow-up with them and/or the need for any referrals to a consulting specialist. The emergency department will also refer you to a specialist when appropriate. This referral assures that you have the opportunity for follow-up care with a specialist. All of these measure are taken in an effort to provide you with optimal care, which includes your follow-up. Under all circumstances we always encourage you to contact your private physician who remains a resource for coordinating your care. When calling for follow-up care, please make the office aware that this follow-up is from your recent emergency room visit. If for any reason you are refused follow-up, please contact the [facility] Emergency Department at and asked to speak to the emergency department charge nurse. Please follow up with your primary care physician. If you do not have a primary care physician, see below: [facility] [address], [place] [address] [facility] [address] [place] [address] [facility] [address] [place] [address] Sepsis Event Note (ED) - Focused Exam Vital Signs: Vital Signs Temp Pulse Resp BP Pulse Ox 09/13/20 09:08 98 18 99/43 L 98 09/13/20 08:23 99 18 105/62 96 09/13/20 07:32 96.7 F L 18 97/44 L 09/13/20 07:31 91 100 - My Orders Last 24 Hours: My Active Orders 09/13/20 07:31 Cardiac Monitoring [RC] . DIRECTED EKG Documentation Completion [RC] STAT Pulse Oximetry [RC] ASDIRECTED Sodium Chloride 0.9% [Saline Flush] 10 ml FLUSH ASDIRECTED PRN Sodium Chloride 0.9% [Saline Flush] 2.5 ml FLUSH ASDIRECTED PRN Saline Lock Insert [OM.PC] Stat 09/13/20 07:32 UA W/JAIDA RFLX IF INDICATED [URIN] Stat 09/13/20 07:34 DRUG SCREEN, URINE [URCHEM] Stat - Assessment/Plan Last 24 Hours: My Active Orders 09/13/20 07:31 Cardiac Monitoring [RC] . DIRECTED EKG Documentation Completion [RC] STAT Pulse Oximetry [RC] ASDIRECTED Sodium Chloride 0.9% [Saline Flush] 10 ml FLUSH ASDIRECTED PRN Sodium Chloride 0.9% [Saline Flush] 2.5 ml FLUSH ASDIRECTED PRN Saline Lock Insert [OM.PC] Stat 09/13/20 07:32 UA W/JAIDA RFLX IF INDICATED [URIN] Stat 09/13/20 07:34 DRUG SCREEN, URINE [URCHEM] Stat
[2020-09-13] MEDS ORDERED: Sodium Chloride 0.9% 2.5 ML Syringe FLUSH PRN (07:31)
[2020-09-13] MEDS ORDERED: LORazepam 2 MG/ML SDV IVPUSH ONE (07:31)
[2020-09-13] MEDS ORDERED: Sodium Chloride 0.9% 10 ML Syringe FLUSH PRN (07:31)
[2020-09-13] MEDS ORDERED: Sodium Chloride 0.9% 1,000 ML IV ONE ×2 (07:31→08:40)
[2020-09-13] MEDS ORDERED: chlordiazePOXIDE 25 MG Cap PO ONE (07:34)
[2020-09-13 08:13] LABS: CARBON DIOXIDE,CO2 20.5 mmol/L (21.0-32.0); CHLORIDE,CL 100 mmol/L (98-107); GLUCOSE RANDOM 174 mg/dL (74-106); POTASSIUM,K 4.2 mmol/L (3.5-5.1); SODIUM,NA 138 mmol/L (136-148)
--- NOTE | 2020-09-13 08:26 | CR ---
INDICATION: Altered mental status. TECHNIQUE: Chest 1 views COMPARISON: September 02, 2019. FINDINGS: Cardiovascular and mediastinum: Heart size and vasculature are normal in caliber and appearance. Lungs and pleural spaces: Lungs are clear. No sign of infiltrate or mass. No sign of pleural effusion. No pneumothorax. Bones and soft tissues: No significant findings. IMPRESSION: No acute findings and no significant changes from the prior exam. Dictated by Sp Fairchild MD @ Sep 13 2020 8:24AM Signed by Dr. Sp Fairchild @ Sep 13 2020 8:25AM
--- NOTE | 2020-09-13 08:28 | CT ---
INDICATION: Altered mental status. TECHNIQUE: CT head without contrast. COMPARISON: None. FINDINGS: CSF spaces: Within normal limits for age. Brain parenchyma and extra-axial spaces: The aaron-white differentiation is normal. No sign of mass, hemorrhage, or midline shift. No extra-axial fluid collection. Skull base and calvarium: The visualized paranasal sinuses and mastoid air cells demonstrate no acute or significant findings. The visualized orbits are grossly unremarkable. No skull fractures. IMPRESSION: Unremarkable noncontrast head CT. Please note that all CT scans at this facility use dose modulation, iterative reconstruction, and/or weight-based dosing when appropriate to reduce radiation dose to as low as reasonably achievable. Dictated by Sp Fairchild MD @ Sep 13 2020 8:25AM Signed by Dr. Sp Fairchild @ Sep 13 2020 8:27AM
[2020-09-13 08:41] LABS: BLOOD UREA NITROGEN,BUN 48 mg/dL (7.0-18.0)
[2020-09-13 11:06] VITALS: BP 134/100; PULSE 90
== END 2020-09-13 11:06 | disposition home or self-care (01) ==
LOC: MW.ED 07:16
DX: N17.9 Acute kidney failure, unspecified (principal); E86.0 Dehydration; I10 Essential (primary) hypertension; M10.9 Gout, unspecified; Z20.822 Contact with and (suspected) exposure to COVID-19; Z88.5 Allergy status to narcotic agent; Z79.899 Other long term (current) drug therapy
CPT/HCPCS: 36415; 70450; 71045; 80053; 80179; 80305; 81003; 82140; 82550; 83735; 84443; 84484; 85025; 87635; 93005; 96374; 99285; A9270; J2060; J7030; 93010; 99283; U0002

== ENCOUNTER 2022-02-20 14:22 | Emergency (ER) | payer SELFPAY ==
[2022-02-20] MEDS ORDERED: Sodium Chloride 0.9% 10 ML Syringe FLUSH PRN (15:01)
[2022-02-20] MEDS ORDERED: HYDROmorphone 1 MG/ML Syringe IVPUSH ONE (15:01)
[2022-02-20] MEDS ORDERED: Sodium Chloride 0.9% 2.5 ML Syringe FLUSH PRN (15:01)
[2022-02-20] MEDS ORDERED: Ondansetron 4 MG/2 ML SDV IVPUSH ONE (15:01)
[2022-02-20 15:51] LABS: CARBON DIOXIDE,CO2 19.8 mmol/L (21.0-32.0); POTASSIUM,K 4.4 mmol/L (3.5-5.1)
[2022-02-20 16:47] VITALS: BP 153/114; PULSE 83
== END 2022-02-20 16:48 | disposition home or self-care (01) ==
LOC: MW.ED 14:22
DX: M10.9 Gout, unspecified (principal); I10 Essential (primary) hypertension; Z88.8 Allergy status to other drugs, medicaments and biological substances; Z79.899 Other long term (current) drug therapy
CPT/HCPCS: 36415; 80053; 84550; 85025; 96374; 96375; 99283; J1170; J2405; J3490

== ENCOUNTER 2022-03-03 07:56 | Emergency (ER) | payer SELFPAY ==
[2022-03-03] MEDS ORDERED: Dexamethasone 10 MG/ML SDV IM STA (09:01)
[2022-03-03] MEDS ORDERED: Acetaminophen/oxyCODONE 325-5 MG Tab PO ONE (09:16)
[2022-03-03 09:34] VITALS: BP 139/96; PULSE 70
== END 2022-03-03 09:34 | disposition home or self-care (01) ==
LOC: MW.ED 07:56
DX: M13.0 Polyarthritis, unspecified (principal); I10 Essential (primary) hypertension; Z79.899 Other long term (current) drug therapy; Z87.39 Personal history of other diseases of the musculoskeletal system and connective tissue
CPT/HCPCS: 96372; 99283; A9270; J1100

== ENCOUNTER 2022-05-04 07:15 | Emergency (ER) | payer SELFPAY ==
[2022-05-04] MEDS ORDERED: predniSONE 20 MG Tab PO ONE (08:36)
[2022-05-04] MEDS ORDERED: oxyCODONE 5 MG Tab PO ONE (08:36)
[2022-05-04] MEDS ORDERED: Naproxen 500 MG Tab PO ONE (08:36)
== END 2022-05-04 10:45 | disposition home or self-care (01) ==
LOC: MW.ED 07:15
DX: M10.9 Gout, unspecified (principal); Z87.891 Personal history of nicotine dependence
CPT/HCPCS: 99283; A9270

== ENCOUNTER 2022-06-04 08:24 | Emergency (ER) | payer SELFPAY ==
[2022-06-04] MEDS ORDERED: Ketorolac 60 MG/2 ML SDV IM ONE (09:15)
[2022-06-04] MEDS ORDERED: Dexamethasone 10 MG/ML SDV IM ONE (09:16)
[2022-06-04 10:35] VITALS: BP 140/95; PULSE 103
== END 2022-06-04 10:44 | disposition home or self-care (01) ==
LOC: MW.ED 08:24
DX: M10.9 Gout, unspecified (principal); I10 Essential (primary) hypertension; I25.2 Old myocardial infarction; Z72.0 Tobacco use; Z88.5 Allergy status to narcotic agent; Z79.899 Other long term (current) drug therapy
CPT/HCPCS: 73620; 96372; 99283; J1100; J1885

== ENCOUNTER 2022-08-05 07:26 | Emergency (ER) | payer SELFPAY ==
[2022-08-05 07:39] VITALS: BP 179/130; PULSE 104
[2022-08-05] MEDS ORDERED: Naproxen 500 MG Tab PO ONE (08:01)
[2022-08-05] MEDS ORDERED: predniSONE 20 MG Tab PO ONE (08:01)
== END 2022-08-05 08:51 | disposition home or self-care (01) ==
LOC: MW.ED 07:26
DX: M10.9 Gout, unspecified (principal); I11.9 Hypertensive heart disease without heart failure; I25.2 Old myocardial infarction; F17.210 Nicotine dependence, cigarettes, uncomplicated; Z88.5 Allergy status to narcotic agent
CPT/HCPCS: 99283; A9270

== ENCOUNTER 2022-08-22 14:05 | Emergency (ER) | payer SELFPAY ==
[2022-08-22] MEDS ORDERED: Albuterol/Ipratropium 3.0-0.5 MG/3 ML Neb Soln NEB ONE (14:37)
[2022-08-22 14:42] VITALS: BP 148/115; PULSE 114
[2022-08-22] MEDS ORDERED: Sodium Chloride 0.9% 10 ML Syringe FLUSH PRN (15:00)
[2022-08-22] MEDS ORDERED: Sodium Chloride 0.9% 20 ML SDV IV PRN (15:00)
[2022-08-22] MEDS ORDERED: Sodium Chloride 0.9% 2.5 ML Syringe FLUSH PRN (15:00)
[2022-08-22 16:16] LABS: CARBON DIOXIDE,CO2 22.1 mmol/L (21.0-32.0); POTASSIUM,K 4.1 mmol/L (3.5-5.1)
[2022-08-22] MEDS ORDERED: Aspirin 325 MG Tab PO ONE (16:30)
== END 2022-08-22 17:14 | disposition other institution (70) ==
LOC: MW.ED 14:05
DX: I21.4 Non-ST elevation (NSTEMI) myocardial infarction (principal); I11.0 Hypertensive heart disease with heart failure; I50.9 Heart failure, unspecified; I25.2 Old myocardial infarction; Z88.5 Allergy status to narcotic agent
CPT/HCPCS: 36415; 71045; 71045-26; 80053; 83880; 84484; 85025; 85379; 85610; 93005; 99285; J7620-GY

== ENCOUNTER 2022-08-25 18:03 | Inpatient (IN) | payer MEDICAID ==
[2022-08-25] MEDS ORDERED: Sodium Chloride 0.9% 2.5 ML Syringe FLUSH PRN (18:10)
[2022-08-25] MEDS ORDERED: Sodium Chloride 0.9% 10 ML Syringe FLUSH PRN (18:10)
[2022-08-25] MEDS ORDERED: Furosemide 40 MG/4 ML VIAL IVPUSH ONE (18:11)
[2022-08-25] MEDS ORDERED: Nitroglycerin 0.4 MG Tab.SL SL PRN (18:11)
[2022-08-25] MEDS ORDERED: Aspirin 81 MG Tab.Chew PO ONE (18:11)
[2022-08-25] MEDS ORDERED: Morphine 4 MG/ML Syringe IVPUSH ONE (18:29)
[2022-08-25] MEDS ORDERED: Ondansetron 4 MG/2 ML SDV IVPUSH ONE (18:29)
[2022-08-25 18:48] LABS: CARBON DIOXIDE,CO2 22.5 mmol/L (21.0-32.0); POTASSIUM,K 4.2 mmol/L (3.5-5.1)
[2022-08-25] MEDS ORDERED: Morphine 4 MG/ML Syringe IVPUSH STA (22:19)
[2022-08-26] MEDS ORDERED: Enoxaparin 40 MG/0.4 ML Syringe SUBCUT ONE (01:00)
[2022-08-26 06:17] LABS: POTASSIUM,K 4.2 mmol/L (3.5-5.1)
[2022-08-26] MEDS ORDERED: Furosemide 40 MG/4 ML VIAL IVPUSH SCH (08:00)
[2022-08-26] MEDS: Furosemide 40 MG/4 ML VIAL IVPUSH SCH (13:18)
[2022-08-26] MEDS ORDERED: Enoxaparin 40 MG/0.4 ML Syringe SUBCUT SCH (21:00)
[2022-08-27 06:40] LABS: CARBON DIOXIDE,CO2 25.4 mmol/L (21.0-32.0); POTASSIUM,K 3.5 mmol/L (3.5-5.1)
[2022-08-27] MEDS: Furosemide 40 MG/4 ML VIAL IVPUSH SCH (07:50)
[2022-08-27] MEDS ORDERED: Furosemide 40 MG/4 ML VIAL IVPUSH SCH (09:00)
[2022-08-27 09:36] VITALS: BP 141/98; PULSE 94
[2022-08-27] MEDS ORDERED: Metoprolol Succinate 25 MG Tab.ER PO SCH (11:00)
== END 2022-08-27 11:30 | disposition home or self-care (01) | DRG 291 ==
LOC: MW.ED 18:03 → MW.MS 23:19
PROVIDERS: ADMIT Internal Medicine; ATTEND Internal Medicine
DX: I11.0 Hypertensive heart disease with heart failure (principal); I50.33 Acute on chronic diastolic (congestive) heart failure; J96.01 Acute respiratory failure with hypoxia; I50.9 Heart failure, unspecified; M10.9 Gout, unspecified; G47.30 Sleep apnea, unspecified; Z20.822 Contact with and (suspected) exposure to COVID-19; Z79.82 Long term (current) use of aspirin; Z79.51 Long term (current) use of inhaled steroids; Z79.899 Other long term (current) drug therapy; Z91.14 Patient's other noncompliance with medication regimen; Z99.89 Dependence on other enabling machines and devices; Z79.891 Long term (current) use of opiate analgesic; I25.2 Old myocardial infarction; Z79.52 Long term (current) use of systemic steroids
CPT/HCPCS: 36415; 71045; 71045-26; 80048; 80053; 83735; 83880; 84484; 85025; 93005; 93010; 93306; 96374; 96375; 96376; 99221; 99239; 99284; 99285-25; A9270-GY; J1650; J1940; J2270; J2405; J3490; U0002

== ENCOUNTER 2022-12-01 05:16 | Emergency (ER) | payer MEDICAID ==
[2022-12-01] MEDS ORDERED: Ketorolac 30 MG/ML SDV IM ONE (05:45)
[2022-12-01] MEDS ORDERED: predniSONE 10 MG Tab PO ONE (05:45)
[2022-12-01 06:14] VITALS: BP 160/110; PULSE 82
== END 2022-12-01 06:13 | disposition home or self-care (01) ==
LOC: MW.ED 05:16
DX: M10.9 Gout, unspecified (principal); I10 Essential (primary) hypertension; I25.2 Old myocardial infarction; Z88.5 Allergy status to narcotic agent; Z79.899 Other long term (current) drug therapy
CPT/HCPCS: 96372; 99283; A9270; J1885

== ENCOUNTER 2022-12-16 05:33 | Emergency (ER) | payer MEDICAID ==
[2022-12-16] MEDS ORDERED: Colchicine 0.6 MG Tab PO ONE ×2 (05:41→05:54)
[2022-12-16] MEDS ORDERED: Ketorolac 30 MG/ML SDV IM ONE (05:42)
[2022-12-16] MEDS ORDERED: HYDROmorphone 1 MG/ML Syringe IM ONE (05:49)
[2022-12-16] MEDS ORDERED: predniSONE 20 MG Tab PO ONE (05:49)
[2022-12-16 06:12] VITALS: BP 167/104; PULSE 116
== END 2022-12-16 06:13 | disposition home or self-care (01) ==
LOC: MW.ED 05:33
DX: M10.9 Gout, unspecified (principal); M12.9 Arthropathy, unspecified; I10 Essential (primary) hypertension; I25.2 Old myocardial infarction; Z88.5 Allergy status to narcotic agent; Z79.899 Other long term (current) drug therapy
CPT/HCPCS: 96372; 99283; A9270; J1170; J1885

== ENCOUNTER 2023-01-21 01:35 | Emergency (ER) | payer MEDICAID ==
[2023-01-21 01:42] VITALS: BP 151/112; PULSE 104
[2023-01-21] MEDS: Ketorolac 30 MG/ML SDV IM STA (01:59)
[2023-01-21] MEDS: Famotidine 20 MG Tab PO STA (02:00)
[2023-01-21] MEDS: predniSONE 20 MG Tab PO STA (02:00)
== END 2023-01-21 02:11 | disposition home or self-care (01) ==
LOC: MW.ED 01:35
DX: M25.572 Pain in left ankle and joints of left foot (principal); G47.30 Sleep apnea, unspecified; I10 Essential (primary) hypertension; I25.2 Old myocardial infarction; F17.210 Nicotine dependence, cigarettes, uncomplicated; Z88.5 Allergy status to narcotic agent; Z79.899 Other long term (current) drug therapy
CPT/HCPCS: 96372; 99283; A9270; J1885; 99284

== ENCOUNTER 2023-03-18 01:13 | Emergency (ER) | payer MEDICAID ==
[2023-03-18] MEDS ORDERED: Ketorolac 30 MG/ML SDV IM ONE (02:24)
[2023-03-18] MEDS ORDERED: predniSONE 20 MG Tab PO ONE (02:24)
[2023-03-18 02:42] VITALS: BP 129/83; PULSE 78
== END 2023-03-18 02:41 | disposition home or self-care (01) ==
LOC: MW.ED 01:13
DX: M10.9 Gout, unspecified (principal); I25.2 Old myocardial infarction; Z88.8 Allergy status to other drugs, medicaments and biological substances
CPT/HCPCS: 96372; 99283; A9270; J1885

== ENCOUNTER 2023-04-06 22:50 | Emergency (ER) | payer MEDICAID ==
[2023-04-06] MEDS ORDERED: Aluminum Hydroxide/Magnesium Hydroxide/Simethicone XS Susp 30 ML Cup PO ONE (22:51)
[2023-04-06] MEDS ORDERED: Morphine 4 MG/ML Syringe IVPUSH ONE (23:02)
[2023-04-06] MEDS ORDERED: Ondansetron 4 MG/2 ML SDV IVPUSH ONE (23:03)
[2023-04-06] MEDS ORDERED: Sodium Chloride 0.9% 500 ML IV ONE (23:35)
[2023-04-06 23:50] LABS: A/G RATIO 1.2 (0.9-1.6); ALBUMIN 4.2 g/dL (3.4-5.0); BILIRUBIN TOTAL 0.9 mg/dL (0.2-1.0); CALCIUM 9.9 mg/dL (8.5-10.1); CARBON DIOXIDE,CO2 19.2 mmol/L (21.0-32.0); EST CRCL DRUG DOSING (CG) 21.14 mL/min; MAGNESIUM 2.2 mg/dL (1.8-2.4); POTASSIUM,K 4.3 mmol/L (3.5-5.1); PROTEIN TOTAL,TP 7.8 g/dL (6.4-8.2)
[2023-04-07] MEDS ORDERED: Sodium Chloride 0.9% 1,000 ML IV ONE (00:08)
[2023-04-07] MEDS ORDERED: Acetaminophen/oxyCODONE 325-5 MG Tab PO ONE (00:37)
[2023-04-07 01:11] VITALS: BP 142/88; PULSE 81
== END 2023-04-07 01:11 | disposition left against medical advice (07) ==
LOC: MW.ED 22:50
DX: N17.9 Acute kidney failure, unspecified (principal); I11.0 Hypertensive heart disease with heart failure; I50.9 Heart failure, unspecified; I25.2 Old myocardial infarction; J44.9 Chronic obstructive pulmonary disease, unspecified; Z88.5 Allergy status to narcotic agent; Z79.01 Long term (current) use of anticoagulants
CPT/HCPCS: 36415; 71045; 80053; 83735; 84484; 93005; 96361; 96374; 96375; 99285; A9270; J2270; J2405; J7030; 93010; 99284

== ENCOUNTER 2023-05-11 23:34 | Emergency (ER) | payer MEDICAID ==
[2023-05-11] MEDS ORDERED: Ketorolac 30 MG/ML SDV IM ONE (23:50)
[2023-05-11] MEDS ORDERED: predniSONE 20 MG Tab PO ONE (23:50)
[2023-05-12 00:08] VITALS: BP 177/101; PULSE 84
== END 2023-05-12 00:42 | disposition home or self-care (01) ==
LOC: MW.ED 23:34
DX: M10.9 Gout, unspecified (principal); I11.0 Hypertensive heart disease with heart failure; I50.9 Heart failure, unspecified; I25.2 Old myocardial infarction; J44.9 Chronic obstructive pulmonary disease, unspecified; Z88.5 Allergy status to narcotic agent; Z79.899 Other long term (current) drug therapy
CPT/HCPCS: 96372; 99283; A9270; J1885